=== PATIENT | female | born 1955 | race Caucasian/White ===

== ENCOUNTER → 2018-04-24 09:52 | Outpatient (CLI) | payer OTHER, SELFPAY ==
--- NOTE | 2018-04-24 10:01 | RAD_ITS ---
STUDY: X-RAY - PELVIS REASON FOR EXAM: Female, 62 years old. Chronic pain TECHNIQUE: One view of the pelvis was obtained. COMPARISON: None. FINDINGS: There is a non-specific bowel gas pattern. The soft tissues are unremarkable. There are mild degenerative changes in the lower lumbar spine. The visualized iliac wings, sacroiliac joints and sacrum are unremarkable. No abnormalities are seen in the visualized superior and inferior pubic rami. Normal appearing pubic symphysis. The visualized ischial tuberosities are unremarkable. The proximal right femur shows no significant abnormalities. The right acetabulum shows no significant abnormalities. The right hip joint is normal in appearance. The proximal left femur shows no significant abnormalities. The left acetabulum shows no significant abnormalities. The left hip joint is normal in appearance. RAD/Pelvis 1 or 2 Views IMPRESSION: No significant abnormalities are seen radiographically in the pelvis. Electronically Signed: Mariann Valentine MD at 18:52 EDT Tel Direct: [phone], Service support ,
--- NOTE | 2018-04-24 10:01 | RAD_ITS ---
STUDY: X-RAY - LUMBAR SPINE REASON FOR EXAM: Female, 62 years old. Chronic pain TECHNIQUE: Five view(s) of the lumbar spine were obtained. COMPARISON: None FINDINGS: Normal lumbar lordosis. There is no significant scoliosis. There is normal alignment of the vertebrae. There are small osteophytes scattered in the lumbar spine. Vertebral body heights are maintained. There is moderate disc space narrowing at L5-S1. There is mild disc space narrowing at T12-L1, L1-2 and L3-4. The soft tissues are unremarkable. RAD/L/S Spine Min 4 Views IMPRESSION: There are moderate degenerative disc changes at L5-S1. Mild degenerative disc changes are present in the lower thoracic spine and L1-2 and L3-4. Electronically Signed: Mariann Valentine MD at 18:54 EDT Tel Direct: [phone], Service support ,
[2018-04-24 12:24] LABS: Erythrocyte Sedimentation Rate 5 mm/hr (0-30)
[2018-04-24 12:26] LABS: Absolute Lymphocyte Count 1.49 X10^3/ul (0.83-4.51); Absolute Neutrophil Count 3.8 X10^3/uL (2.0-7.7); Basophil# 0.03 X10^3/uL; Basophil% 0.5 % (0-1); Eosinophil# 0.22 X10^3/uL; Eosinophils% 3.6 % (0-5); Hematocrit 39.8 % (37-47); Lymphocyte # 1.49 X10^3/ul (4.0); Lymphocyte % 24.7 % (19-41); Mean Corp Hgb Conc 32.7 g/gl (32-36); Mean Corpuscular Volume 91.7 fL (81-99); Mean Platelet Vol. 9.8 fl (6.2-12.0); Monocyte# 0.46 X10^3/uL; Monocyte% 7.6 % (0-10); Neutrophil # 3.83 X10^3/uL (2.7-7.7); Neutrophil % 63.6 % (47-70); Platelet Count 303 K/mm3 (150-450); RBC Distribution Width CV 13.8 % (11.6-14.6); RBC Distribution Width SD 46.1 fl (35.1-43.9); Red Blood Count 4.34 M/mm3 (4.2-5.4)
[2018-04-24 12:30] LABS: POSITIVE COUNT NO; POSITIVE DIFFERENTIAL NO; POSITIVE MORPHOLOGY NO
[2018-04-24 12:40] LABS: AST(SGOT) 26 U/L (15-37); Alanine Aminotransfer ALT/SGPT 37 U/L (13-56); Albumin, Serum 3.8 g/dL (3.2-5.0); Alkaline Phosphatase 88 U/L (45-117); Anion Gap 8 (5-15); BUN 17 mg/dL (7-18); BUN/Creat Ratio 18.9 RATIO (10-20); Calcium,Total 9.2 mg/dL (8.5-10.1); Chloride 103 mmol/L (98-107); EST Glomerular Filtration Rate 68 mL/min (>60); Est Glom Filt Rate - Afr Amer 82 mL/min (>60); Globulin 3.8 g/dL (2.2-4.2); Glucose 86 mg/dL (74-106); Potassium 4.6 mmol/L (3.5-5.1); Protein, Total 7.6 g/dL (6.4-8.2); Rheumatoid Factor < 10.0 IU/mL (<15); Sodium Level 140 mmol/L (136-145)
[2018-04-25 13:49] LABS: ANTINUCLEAR ANTIBODIES DIRECT Negative (Negative)
[2018-05-01 18:00] LABS: CCP IgG Antibodies 11 units (0-19); HEPATITIS B SURFACE AG Negative (Negative); HLA B27 Negative (.); Hep B Surface Antibodies Non Reactive (.); Hep C Antibodies <0.1 s/co ratio (0.0-0.9)
== END ==
PROVIDERS: Family Provider Internal Medicine; PCP Internal Medicine; Visit Provider Internal Medicine Rheumatology
DX: M06.4 Inflammatory polyarthropathy (principal); M47.897 Other spondylosis, lumbosacral region; M15.9 Polyosteoarthritis, unspecified; E03.9 Hypothyroidism, unspecified; E78.5 Hyperlipidemia, unspecified
CPT/HCPCS: 36415; 72110; 72170; 80053; 81374; 85025; 85652; 86038; 86140; 86200; 86431; 86706; 86803; 87340

== ENCOUNTER → 2018-07-10 08:19 | Outpatient (CLI) | payer OTHER, SELFPAY ==
[2018-07-10 10:18] LABS: Absolute Lymphocyte Count 1.22 X10^3/ul (0.83-4.51); Absolute Neutrophil Count 3.6 X10^3/uL (2.0-7.7); Basophil# 0.03 X10^3/uL; Basophil% 0.6 % (0-1); Eosinophils% 3.7 % (0-5); Hematocrit 37.7 % (37-47); Hemoglobin 12.6 g/dl (12.0-15.0); Lymphocyte # 1.22 X10^3/ul (4.0); Lymphocyte % 22.5 % (19-41); Mean Corp Hgb Conc 33.4 g/gl (32-36); Mean Corpuscular Hgb 31.8 pg (27.0-32.0); Mean Corpuscular Volume 95.2 fL (81-99); Mean Platelet Vol. 9.8 fl (6.2-12.0); Monocyte# 0.39 X10^3/uL; Monocyte% 7.2 % (0-10); Neutrophil # 3.58 X10^3/uL (2.7-7.7); Neutrophil % 65.8 % (47-70); Platelet Count 312 K/mm3 (150-450); RBC Distribution Width CV 15.5 % (11.6-14.6); RBC Distribution Width SD 52.1 fl (35.1-43.9); Red Blood Count 3.96 M/mm3 (4.2-5.4); White Blood Count 5.4 K/mm3 (4.4-11.0)
[2018-07-10 10:20] LABS: POSITIVE COUNT NO; POSITIVE DIFFERENTIAL NO; POSITIVE MORPHOLOGY NO
[2018-07-10 10:41] LABS: ALB/GLOB Ratio 1.1 RATIO (0.9-2.4); AST(SGOT) 33 U/L (15-37); Alanine Aminotransfer ALT/SGPT 39 U/L (13-56); Albumin, Serum 3.6 g/dL (3.2-5.0); Alkaline Phosphatase 84 U/L (45-117); Anion Gap 10 (5-15); BUN 17 mg/dL (7-18); BUN/Creat Ratio 16.7 RATIO (10-20); Calcium,Total 8.8 mg/dL (8.5-10.1); Chloride 106 mmol/L (98-107); Creatinine, Serum 1.02 mg/dL (0.55-1.02); EST Glomerular Filtration Rate 58 mL/min (>60); Est Glom Filt Rate - Afr Amer 71 mL/min (>60); Globulin 3.4 g/dL (2.2-4.2); Glucose 107 mg/dL (74-106); Potassium 4.4 mmol/L (3.5-5.1); Sodium Level 142 mmol/L (136-145)
== END ==
PROVIDERS: Family Provider Internal Medicine; PCP Internal Medicine; Visit Provider Internal Medicine Rheumatology
DX: M06.4 Inflammatory polyarthropathy (principal); M47.897 Other spondylosis, lumbosacral region; E03.9 Hypothyroidism, unspecified; E78.5 Hyperlipidemia, unspecified; M15.9 Polyosteoarthritis, unspecified
CPT/HCPCS: 36415; 80053; 85025

== ENCOUNTER → 2018-10-02 07:53 | Outpatient (CLI) | payer OTHER, SELFPAY ==
[2018-10-02 10:18] LABS: Absolute Lymphocyte Count 1.16 X10^3/ul (0.83-4.51); Basophil# 0.02 X10^3/uL; Basophil% 0.3 % (0-1); Eosinophil# 0.17 X10^3/uL; Eosinophils% 2.9 % (0-5); Hematocrit 38.9 % (37-47); Hemoglobin 12.5 g/dl (12.0-15.0); Lymphocyte # 1.16 X10^3/ul (4.0); Mean Corp Hgb Conc 32.1 g/gl (32-36); Mean Corpuscular Hgb 31.6 pg (27.0-32.0); Mean Corpuscular Volume 98.5 fL (81-99); Mean Platelet Vol. 9.5 fl (6.2-12.0); Monocyte# 0.45 X10^3/uL; Monocyte% 7.7 % (0-10); Neutrophil % 68.9 % (47-70); POSITIVE COUNT NO; POSITIVE DIFFERENTIAL NO; POSITIVE MORPHOLOGY NO; Platelet Count 317 K/mm3 (150-450); RBC Distribution Width CV 14.7 % (11.6-14.6); RBC Distribution Width SD 52.5 fl (35.1-43.9); Red Blood Count 3.95 M/mm3 (4.2-5.4); White Blood Count 5.8 K/mm3 (4.4-11.0)
[2018-10-02 10:30] LABS: ALB/GLOB Ratio 1.2 RATIO (0.9-2.4); AST(SGOT) 27 U/L (15-37); Alanine Aminotransfer ALT/SGPT 35 U/L (13-56); Albumin, Serum 3.8 g/dL (3.2-5.0); Alkaline Phosphatase 84 U/L (45-117); Anion Gap 7 (5-15); BUN 18 mg/dL (7-18); BUN/Creat Ratio 17.6 RATIO (10-20); Calcium,Total 8.8 mg/dL (8.5-10.1); Chloride 106 mmol/L (98-107); Creatinine, Serum 1.02 mg/dL (0.55-1.02); EST Glomerular Filtration Rate 58 mL/min (>60); Est Glom Filt Rate - Afr Amer 71 mL/min (>60); Globulin 3.3 g/dL (2.2-4.2); Glucose 92 mg/dL (74-106); Potassium 4.1 mmol/L (3.5-5.1); Protein, Total 7.1 g/dL (6.4-8.2); Sodium Level 141 mmol/L (136-145)
--- OUTSIDE RECORDS SUMMARY | 2018-11-27 12:24 | XMS RPT_ITS ---
:1955 Author Organization OHIP Care Team Providers Name Role Phone PEMA SNYDER Referring Unavailable PEMA SNYDER Referring Unavailable PEMA SNYDER Referring Unavailable PEMA SNYDER Referring Unavailable YONG DANIEL Admitting Unavailable YONG DANIEL Attending Unavailable ABDIRAHMAN PATRICK (MACHINE PAINT MIXER) Referring Unavailable Carloslanki, Mena Attending Unavailable Vellanki, Mena Referring Unavailable Sarabjit, Indigo Primary Care Unavailable Vellanki, Mena Attending Unavailable Vellanki, Mena Referring Unavailable Sarabjit, Inidgo Primary Care Unavailable Vellanki, Mena Attending Unavailable Vellanki, Mena Referring Unavailable Sarabjit, Indigo Primary Care Unavailable PROBLEMS PROBLEMS DATE TYPE CONDITION / CODE ATTENDING STATUS SOURCE 10/02/2018 Unknown 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, 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 / Community M06.4(ICD-10) Hospital Repository 10/02/2018 Unknown Z79.899 - Other long Ines, Mena Active [facility] term (current) drug Community therapy / Hospital Z79.899(ICD-10) Repository 10/02/2018 Unknown M15.9 - Mena Chacon Active [facility] Polyosteoarthritis, Community unspecified / Hospital M15.9(ICD-10) Repository 10/02/2018 Unknown M47.897 - Other Mena Chacon Active [facility] spondylosis, Community lumbosacral region / Hospital M47.897(ICD-10) Repository 10/02/2018 Unknown E03.9 - Mena Chacon Active [facility] Hypothyroidism, Community unspecified / Hospital E03.9(ICD-10) Repository 10/02/2018 Unknown E78.5 - Mena Chacon Active [facility] Hyperlipidemia, Community unspecified / Hospital E78.5(ICD-10) Repository 07/17/2018 Active Other abnormal and NA Active [facility] inconclusive findings Clinic Main on diagnostic imaging [place] of breast / Repository R92.8(ICD-10) 01/16/2018 Active Unknown / NA Active [facility] UNK(Unknown) Clinic Main [place] Repository 07/30/2017 Active Family history of DANIEL, Active [facility] malignant neoplasm of [facility] Main digestive organs / [place] Z80.0(ICD-10) Repository PROCEDURES PROCEDURES No Procedure Records FoundRESULTS RESULTS CBC W/DIFF, AUTOMATED Collected: 10/02/2018 Status: F Source: [facility] 7:56 AM [facility] REPOSITORY TYPE CODE TESTS RESULT OUT OF RANGE REFERENCE UNITS LAB L100.1000 4.4-11.0 K/mm3 Normal WBC 5.8 LAB L100.1200 4.2-5.4 M/mm3 Low RBC 3.95 LAB L100.1300 12.0-15.0 g/dl Normal HGB 12.5 LAB L100.1400 37-47 % Normal HCT 38.9 LAB L100.1500 81-99 fL Normal MCV 98.5 LAB L100.1600 27.0-32.0 pg Normal MCH 31.6 LAB L100.1700 32-36 g/gl Normal MCHC 32.1 LAB L100.1810 11.6-14.6 % High RDW CV 14.7 LAB L100.1820 35.1-43.9 fl High RDW SD 52.5 LAB L100.1900 150-450 K/mm3 Normal PLT 317 LAB L100.2000 6.2-12.0 fl Normal MPV 9.5 LAB L100.2100 47-70 % Normal NEUT% 68.9 LAB L100.2200 19-41 % Normal LY% 20.0 LAB L100.2300 0-10 % Normal MONO% 7.7 LAB L100.2400 0-5 % Normal EO% 2.9 LAB L100.2500 0-1 % Normal BASO% 0.3 LAB L100.2550 0.0-0.9 % Normal IM GRAN % 0.200 Result Comment: IG% - Immature Granulocytes (promyelocytes, myelocytes and metamyelocytes) > 1% indicates that a LEFT SHIFT is Present. LAB L100.2620 2.0-7.7 X10 3/uL Normal Absolute Neut 4.0 LAB L100.2720 0.83-4.51 X10 3/ul Normal Absolute Lymph 1.16 Performed By: #### L100.0100 #### [facility] [address] [place], [address] COMPREHENSIVE METABOLIC Collected: 10/02/2018 Status: F Source: [facility] 7:56 AM [facility] REPOSITORY TYPE CODE TESTS RESULT OUT OF RANGE REFERENCE UNITS LAB L501.0100 74-106 mg/dL Normal GLU 92 Result Comment: Please note revised GLUCOSE reference range effective 2017. LAB L501.1000 7-18 mg/dL Normal BUN 18 LAB L501.1100 0.55-1.02 mg/dL Normal CREAT,SERUM 1.02 Result Comment: The validity of the calculated GFR AND GFRAA in patients over 70 years has not been determined. Clinical correlation is essential. LAB L501.1110 >60 mL/min Low EST GFR 58 Result Comment: Non- GFR Calc LAB L501.1115 >60 mL/min Normal EST GFR - AA 71 Result Comment: GFR Calc LAB L501.1300 10-20 RATIO Normal BUN/CRE 17.6 LAB L501.1500 6.4-8.2 g/dL T Normal PROT 7.1 LAB L501.1800 3.2-5.0 g/dL Normal ALB 3.8 LAB L501.1950 2.2-4.2 g/dL Normal GLOB 3.3 LAB L501.2000 0.9-2.4 RATIO Normal A/G 1.2 LAB L501.2200 8.5-10.1 mg/dL CA Normal 8.8 LAB L501.4100 15-37 U/L Normal AST 27 LAB L501.4305 45-117 U/L Normal ALK P 84 LAB L501.4405 13-56 U/L Normal ALT 35 LAB L501.4600 0.20-1.00 mg/dL T Normal BILI 0.50 LAB L501.5300 136-145 mmol/L NA Normal 141 LAB L501.5600 3.5-5.1 mmol/L K Normal 4.1 LAB L501.5900 98-107 mmol/L CL Normal 106 LAB L501.6100 21.0-32.0 mmol/L Normal CO2 28.0 LAB L501.6200 5-15 Normal GAP 7 Performed By: #### L500.4050 #### [facility] [address] [place], [address] PROGRESS Observed: 07/17/2018 Status: COMPLETED Source: [place] 1:31 PM [facility] REPOSITORY HNO ID: [id number] Author: Rodolfo Ruby Service: (none) Author Type: Health Occupations Instructor Type: Progress Notes Filed: 07/17/2018 1:31 PM Note Text: Radiology Service Progress Note PATIENT NAME: Linda Wilson DATE OF SERVICE: July 17, 2018 TIME: 1:31 PM PATIENT IDENTITY VERIFICATION COMPLETED USING TWO (2) METHODS: Patient confirmed name verbally and Date of . PATIENT GENDER DATA: Female. status: : No status: N/A PATIENT RELEVANT IMPLANT DATA REVIEWED: Not Applicable RADIOLOGY DEPARTMENT: Ultrasound PERIPHERAL IV DATA: Not applicable SIGNED BY: RODOLFO RUBY RDMS RVSkye July 17, 2018 1:31 PM [facility] Observed: 07/17/2018 Status: COMPLETED Source: [place] 1:31 PM [facility] REPOSITORY HNO ID: [id number] Author: Mammography Coordinator Service: (none) Author Type: Physician Type: Letter Filed: 07/18/2018 11:32 PM Note Text: July 17, 2018 PID: [id number] Linda Wilson [address] [place] [address] Dear Ms. Wilson, We are pleased to inform you that the results of your recent breast imaging exam on 07/17/2018 are normal and we recommend that you return to your annual screening Mammography schedule. Early detection of cancer is very important. We also understand recommendations regarding breast cancer screening are controversial. Please discuss with your primary care provider which strategy is best for you and whether a mammogram is right for you. Your imaging studies and report will be kept on file at [facility] as part of your permanent medical record and are available for your continuing care. Thank you for allowing us to help in meeting your health care needs. Sincerely, Dr. Olivas Interpreting Radiologist [facility] (Return to Annual Mammogram schedule) [facility] Observed: 07/17/2018 Status: COMPLETED Source: [place] 1:31 PM [facility] REPOSITORY HNO ID: [id number] Author: Mammography Coordinator Service: (none) Author Type: Physician Type: Letter Filed: 07/18/2018 11:32 PM Note Text: July 17, 2018 PID: [id number] Linda Wilson [address] [place] [address] Dear Ms. Wilson, We are pleased to inform you that the results of your recent breast imaging exam on 07/17/2018 are normal and we recommend that you return to your annual screening Mammography schedule. Early detection of cancer is very important. We also understand recommendations regarding breast cancer screening are controversial. Please discuss with your primary care provider which strategy is best for you and whether a mammogram is right for you. Your imaging studies and report will be kept on file at [facility] as part of your permanent medical record and are available for your continuing care. Thank you for allowing us to help in meeting your health care needs. Sincerely, Dr. Olivas Interpreting Radiologist [facility] (Return to Annual Mammogram schedule) [facility] US BREAST LTD Observed: 07/17/2018 Status: F Source: [place] RT 1:23 PM [facility] REPOSITORY * * *Final Report* * * DATE OF EXAM: Jul 17 2018 1:23PM [place] 0594 - [facility] US BREAST LTD RT / PROCEDURE REASON: Other abnormal and inconclusive findings on diagnostic imaging of breast * * * * Physician Interpretation * * * * #[id number] - [facility] DIAGNOSTIC CATIA BILATERAL DIGITAL DIAGNOSTIC MAMMOGRAM WITH CAD: 07/17/2018 HISTORY: Other Abnormal And Inconclusive Findings On Diagnostic Imaging Of Breast\abnormal mammogram. RESULT: TECHNIQUE: The study was acquired using full field digital technology and interpreted from soft copy. Current study was also evaluated with a Computer Aided Detection (CAD). Comparison is made to exams dated: 01/16/2018 mammogram, 06/27/2017 mammogram - [facility], 06/13/2017 mammogram - [facility], and 04/14/2015 mammogram [facility]. There are scattered fibroglandular elements in both breasts. There is a 7 mm oval equal density focal asymmetry with an obscured margin in the right breast at 1 o'clock posterior depth. This is not significantly changed. No other significant masses, calcifications, or other findings are seen in either breast. BENIGN FINDING The 7 mm oval equal density focal asymmetry in the right breast is consistent with a cyst and is benign. There is no mammographic evidence of malignancy. #[id number] - [facility] US BREAST LTD RT ULTRASOUND OF RIGHT BREAST: 07/17/2018 RESULT: Comparison is made to exams dated: 01/16/2018 mammogram, 06/27/2017 mammogram - [facility], 06/13/2017 [facility] - [facility], and [facility]. Real-time ultrasound of the right breast was performed. There is a benign 0.6 cm x 0.4 cm x 0.4 cm oval cyst in the right breast at 1 o'clock posterior depth 7 cm from the nipple. There also is a benign 0.5 cm x 0.3 cm x 0.2 cm oval cyst in the right breast at 1 o'clock posterior depth 7 cm from the nipple. This oval cyst is hypoechoic with internal echoes. This abnormality is not significantly changed. Color flow imaging demonstrates that there is no vascularity present. IMPRESSION: BENIGN FINDING There is no sonographic evidence of malignancy. The 0.6 cm x 0.4 cm x 0.4 cm oval cyst in the right breast at 1 o'clock posterior depth is consistent with a simple cyst and is benign. The 0.5 cm x 0.3 cm x 0.2 cm oval cyst in the right breast at 1 o'clock posterior depth is consistent with a complicated cyst and is benign. Return to annual mammogram screening schedule is recommended. Sacha lim/missy:07/17/2018 13:31:04 Log Handler: Krista MCGUIRE(R)(M), [facility] letter sent: Return to Annual Mammogram BI-RADS: 2 Benign finding Ultrasound BI-RADS: 2 Benign finding Principal Software Architect: Missy Transcribe Date/Time: Jul 17 2018 12:57P Dictated by : SACHA OLIVAS MD This examination was interpreted and the report reviewed and electronically signed by: SACHA OLIVAS MD on Jul 17 2018 1:31PM EST [id number] [facility] DIAGNOSTIC CATIA Observed: 07/17/2018 Status: F Source: [place] 12:56 PM [facility] REPOSITORY * * *Final Report* * * DATE OF EXAM: Jul 17 2018 12:56PM [place] 0620 - [facility] DIAGNOSTIC CATIA / PROCEDURE REASON: Other abnormal and inconclusive findings on diagnostic imaging of breast * * * * Physician Interpretation * * * * RESULT: #[id number] - [facility] DIAGNOSTIC CATIA BILATERAL DIGITAL DIAGNOSTIC MAMMOGRAM WITH CAD: 07/17/2018 HISTORY: Other Abnormal And Inconclusive Findings On Diagnostic Imaging Of Breast\abnormal mammogram. RESULT: TECHNIQUE: The study was acquired using full field digital technology and interpreted from soft copy. Current study was also evaluated with a Computer Aided Detection (CAD). Comparison is made to exams dated: 01/16/2018 mammogram, 06/27/2017 mammogram - [facility], 06/13/2017 mammogram - [facility], and 04/14/2015 mammogram - [facility]. There are scattered fibroglandular elements in both breasts. There is a 7 mm oval equal density focal asymmetry with an obscured margin in the right breast at 1 o'clock posterior depth. This is not significantly changed. No other significant masses, calcifications, or other findings are seen in either breast. BENIGN FINDING The 7 mm oval equal density focal asymmetry in the right breast is consistent with a cyst and is benign. There is no mammographic evidence of malignancy. #[id number] - [facility] US BREAST LTD RT ULTRASOUND OF RIGHT BREAST: 07/17/2018 RESULT: Comparison is made to exams dated: 01/16/2018 mammogram, 06/27/2017 mammogram - [facility], 06/13/2017 mammogram - [facility], and 04/14/2015 mammogram - [facility]. Real-time ultrasound of the right breast was performed. There is a benign 0.6 cm x 0.4 cm x 0.4 cm oval cyst in the right breast at 1 o'clock posterior depth 7 cm from the nipple. There also is a benign 0.5 cm x 0.3 cm x 0.2 cm oval cyst in the right breast at 1 o'clock posterior depth 7 cm from the nipple. This oval cyst is hypoechoic with internal echoes. This abnormality is not significantly changed. Color flow imaging demonstrates that there is no vascularity present. IMPRESSION: BENIGN FINDING There is no sonographic evidence of malignancy. The 0.6 cm x 0.4 cm x 0.4 cm oval cyst in the right breast at 1 o'clock posterior depth is consistent with a simple cyst and is benign. The 0.5 cm x 0.3 cm x 0.2 cm oval cyst in the right breast at 1 o'clock posterior depth is consistent with a complicated cyst and is benign. Return to annual mammogram screening schedule is recommended. Sacha lim/missy:07/17/2018 13:31:04 Log Handler: Krista MCGUIRE(Jo-Ann)(Dmitriy), [facility] letter sent: Return to Annual Mammogram BI-RADS: 2 Benign finding Ultrasound BI-RADS: 2 Benign finding Principal Software Architect: Missy Transcribe Date/Time: Jul 17 2018 12:57P Dictated by: SACHA OLIVAS MD This examination was interpreted and the report reviewed and electronically signed by: SACHA OLIVAS MD on Jul 17 2018 1:31PM EST [id number] CBC W/DIFF, AUTOMATED Collected: 07/10/2018 Status: F Source: [place] 8:23 AM [facility] REPOSITORY TYPE CODE TESTS RESULT OUT OF RANGE REFERENCE UNITS LAB L100.1000 4.4-11.0 K/mm3 Normal WBC 5.4 LAB L100.1200 4.2-5.4 M/mm3 Low RBC 3.96 LAB L100.1300 12.0-15.0 g/dl Normal HGB 12.6 LAB L100.1400 37-47 % Normal HCT 37.7 LAB L100.1500 81-99 fL Normal MCV 95.2 LAB L100.1600 27.0-32.0 pg Normal MCH 31.8 LAB L100.1700 32-36 g/gl Normal MCHC 33.4 LAB L100.1810 11.6-14.6 % High RDW CV 15.5 LAB L100.1820 35.1-43.9 fl High RDW SD 52.1 LAB L100.1900 150-450 K/mm3 Normal PLT 312 LAB L100.2000 6.2-12.0 fl Normal MPV 9.8 LAB L100.2100 47-70 % Normal NEUT% 65.8 LAB L100.2200 19-41 % Normal LY% 22.5 LAB L100.2300 0-10 % Normal MONO% 7.2 LAB L100.2400 0-5 % Normal EO% 3.7 LAB L100.2500 0-1 % Normal BASO% 0.6 LAB L100.2550 0.0-0.9 % Normal IM GRAN % 0.200 Result Comment: IG% - Immature Granulocytes (promyelocytes, myelocytes and metamyelocytes) > 1% indicates that a LEFT SHIFT is Present. LAB L100.2620 2.0-7.7 X10 3/uL Normal Absolute Neut 3.6 LAB L100.2720 0.83-4.51 X10 3/ul Normal Absolute Lymph 1.22 Performed By: #### L100.0100 #### [facility] [address] [place], [place], [address] COMPREHENSIVE METABOLIC Collected: 07/10/2018 Status: F Source: [facility] 8:23 AM [facility] REPOSITORY TYPE CODE TESTS RESULT OUT OF RANGE REFERENCE UNITS LAB L501.0100 74-106 mg/dL High GLU 107 Result Comment: Fasting Glucose result from 100 to 125 mg/dL suggests IMPAIRED HOMEOSTASIS per A.D.A. criteria. Please note revised GLUCOSE reference range effective 2017. LAB L501.1000 7-18 mg/dL Normal BUN 17 LAB L501.1100 0.55-1.02 mg/dL Normal CREAT,SERUM 1.02 Result Comment: The validity of the calculated GFR AND GFRAA in patients over 70 years has not been determined. Clinical correlation is essential. LAB L501.1110 >60 mL/min Low EST GFR 58 Result Comment: Non- GFR Calc LAB L501.1115 >60 mL/min Normal EST GFR - AA 71 Result Comment: GFR Calc LAB L501.1300 10-20 RATIO Normal BUN/CRE 16.7 LAB L501.1500 6.4-8.2 g/dL T Normal PROT 7.0 LAB L501.1800 3.2-5.0 g/dL Normal ALB 3.6 LAB L501.1950 2.2-4.2 g/dL Normal GLOB 3.4 LAB L501.2000 0.9-2.4 RATIO Normal A/G 1.1 LAB L501.2200 8.5-10.1 mg/dL CA Normal 8.8 LAB L501.4100 15-37 U/L Normal AST 33 LAB L501.4305 45-117 U/L Normal ALK P 84 LAB L501.4405 13-56 U/L Normal ALT 39 LAB L501.4600 0.20-1.00 mg/dL T Normal BILI 0.50 LAB L501.5300 136-145 mmol/L NA Normal 142 LAB L501.5600 3.5-5.1 mmol/L K Normal 4.4 LAB L501.5900 98-107 mmol/L CL Normal 106 LAB L501.6100 21.0-32.0 mmol/L Normal CO2 26.0 LAB L501.6200 5-15 Normal GAP 10 Performed By: #### L500.4050 #### [facility] [address] [place], [place], [address] ERYTHROCYTE SED RATE Collected: 04/24/2018 Status: F Source: [place] 10:02 AM [facility] REPOSITORY TYPE CODE TESTS RESULT OUT OF RANGE REFERENCE UNITS LAB L102.0000 0-30 mm/hr Normal SED RATE 5 Performed By: #### L101.9900, L100.0100 #### [facility] [address] [place], [address] CBC W/DIFF, AUTOMATED Collected: 04/24/2018 Status: F Source: [place] 10:02 AM [facility] REPOSITORY TYPE CODE TESTS RESULT OUT OF RANGE REFERENCE UNITS LAB L100.1000 4.4-11.0 K/mm3 Normal WBC 6.0 LAB L100.1200 4.2-5.4 M/mm3 Normal RBC 4.34 LAB L100.1300 12.0-15.0 g/dl Normal HGB 13.0 LAB L100.1400 37-47 % Normal HCT 39.8 LAB L100.1500 81-99 fL Normal MCV 91.7 LAB L100.1600 27.0-32.0 pg Normal MCH 30.0 LAB L100.1700 32-36 g/gl Normal MCHC 32.7 LAB L100.1810 11.6-14.6 % Normal RDW CV 13.8 LAB L100.1820 35.1-43.9 fl High RDW SD 46.1 LAB L100.1900 150-450 K/mm3 Normal PLT 303 LAB L100.2000 6.2-12.0 fl Normal MPV 9.8 LAB L100.2100 47-70 % Normal NEUT% 63.6 LAB L100.2200 19-41 % Normal LY% 24.7 LAB L100.2300 0-10 % Normal MONO% 7.6 LAB L100.2400 0-5 % Normal EO% 3.6 LAB L100.2500 0-1 % Normal BASO% 0.5 LAB L100.2550 0.0-0.9 % Normal IM GRAN % 0.000 Result Comment: IG% - Immature Granulocytes (promyelocytes, myelocytes and metamyelocytes) > 1% indicates that a LEFT SHIFT is Present. LAB L100.2620 2.0-7.7 X10 3/uL Normal Absolute Neut 3.8 LAB L100.2720 0.83-4.51 X10 3/ul Normal Absolute Lymph 1.49 Performed By: #### L101.9900, L100.0100 #### [facility] [address] [place], [address] COMPREHENSIVE METABOLIC Collected: 04/24/2018 Status: F Source: [place] 10:02 AM [facility] REPOSITORY TYPE CODE TESTS RESULT OUT OF RANGE REFERENCE UNITS LAB L501.0100 74-106 mg/dL Normal GLU 86 Result Comment: Please note revised GLUCOSE reference range effective 2017. LAB L501.1000 7-18 mg/dL Normal BUN 17 LAB L501.1100 0.55-1.02 mg/dL Normal CREAT,SERUM 0.90 Result Comment: The validity of the calculated GFR AND GFRAA in patients over 70 years has not been determined. Clinical correlation is essential. LAB L501.1110 >60 mL/min Normal EST GFR 68 Result Comment: Non- GFR Calc LAB L501.1115 >60 mL/min Normal EST GFR - AA 82 Result Comment: GFR Calc LAB L501.1300 10-20 RATIO Normal BUN/CRE 18.9 LAB L501.1500 6.4-8.2 g/dL T Normal PROT 7.6 LAB L501.1800 3.2-5.0 g/dL Normal ALB 3.8 LAB L501.1950 2.2-4.2 g/dL Normal GLOB 3.8 LAB L501.2000 0.9-2.4 RATIO Normal A/G 1.0 LAB L501.2200 8.5-10.1 mg/dL CA Normal 9.2 LAB L501.4100 15-37 U/L Normal AST 26 LAB L501.4305 45-117 U/L Normal ALK P 88 LAB L501.4405 13-56 U/L Normal ALT 37 LAB L501.4600 0.20-1.00 mg/dL T Normal BILI 0.40 LAB L501.5300 136-145 mmol/L NA Normal 140 LAB L501.5600 3.5-5.1 mmol/L K Normal 4.6 LAB L501.5900 98-107 mmol/L CL Normal 103 LAB L501.6100 21.0-32.0 mmol/L Normal CO2 29.0 LAB L501.6200 5-15 Normal GAP 8 Performed By: #### L500.4050, L501.6710, L505.7010 #### [facility] [address] [place], [place], [id number] CRP Collected: 04/24/2018 Status: F Source: [place] 10:02 AM [facility] REPOSITORY TYPE CODE TESTS RESULT OUT OF RANGE REFERENCE UNITS LAB L501.6710 0.0-3.0 mg/L High 20.00 C-REACTIVE PROT Result Comment: C-Reactive Protein (CRP) provides useful information for the diagnosis, therapy and monitoring of inflammatory processes and associated diseases. For the evaluation of Relative Risk for Cardiovascular Disease, a High Sensitivity CRP (HSCRP) should be ordered. Performed By: #### L500.4050, L501.6710, L505.7010 #### [facility] [address] [place], [address] RHEUMATOID FACTOR Collected: 04/24/2018 Status: F Source: [place] 10:02 AM [facility] REPOSITORY TYPE CODE TESTS RESULT OUT OF RANGE REFERENCE UNITS LAB L505.7010 <15 IU/mL Normal RHEUMATOID FAC < 10.0 Performed By: #### L500.4050, L501.6710, L505.7010 #### [facility] [address] [place], [address] PELVIS 1 OR 2 VIEWS Observed: 04/24/2018 Status: F Source: [place] 10:02 AM [facility] REPOSITORY [facility] Imaging Services [address] [facility] [place] [address] Pelvis 1 or 2 Views MR#: [id number] Acct: [id number] Name: LINDA WILSON Rep #: [id number] : 1955 F 62 From: Mariann Valentine MD PCP: Indigo Whipple DO Status: REG CLI Study: Pelvis 1 or 2 Views Date of Exam: 04/24/18 Exam# [id number] Ordering Dr: Mena Chacon MD STUDY: X-RAY - PELVIS REASON FOR EXAM: Female, 62 years old. Chronic pain TECHNIQUE: One view of the pelvis was obtained. COMPARISON: None. FINDINGS: There is a non-specific bowel gas pattern. The soft tissues are unremarkable. There are mild degenerative changes in the lower lumbar spine. The visualized iliac wings, sacroiliac joints and sacrum are unremarkable. No abnormalities are seen in the visualized superior and inferior pubic rami. Normal appearing pubic symphysis. The visualized ischial tuberosities are unremarkable. The proximal right femur shows no significant abnormalities. The right acetabulum shows no significant abnormalities. The right hip joint is normal in appearance. The proximal left femur shows no significant abnormalities. The left acetabulum shows no significant abnormalities. The left hip joint is normal in appearance. RAD/Pelvis 1 or 2 Views IMPRESSION: No significant abnormalities are seen radiographically in the pelvis. Electronically Signed: Mariann Valentine MD at 18:52 EDT Tel Direct: [phone], Service support , CC: Indigo Whipple DO; Mena Chacon MD Principal Software Architect: Signed L/S SPINE MIN 4 Observed: 04/24/2018 Status: F Source: [place] VIEWS 10:02 AM [facility] REPOSITORY [facility] Imaging Services [address] [place] [id number] L/S Spine Min 4 Views MR#: [id number] Acct: [id number] Name: LINDA WILSON Rep #: [id number] : 1955 F 62 From: Mariann Valentine MD PCP: Indigo Whipple DO Status: REG CLI Study: L/S Spine Min 4 Views Date of Exam: 04/24/18 Exam# [id number] Ordering Dr: Mena Chacon MD STUDY: X-RAY - LUMBAR SPINE REASON FOR EXAM: Female, 62 years old. Chronic pain TECHNIQUE: Five view(s) of the lumbar spine were obtained. COMPARISON: None FINDINGS: Normal lumbar lordosis. There is no significant scoliosis. There is normal alignment of the vertebrae. There are small osteophytes scattered in the lumbar spine. Vertebral body heights are maintained. There is moderate disc space narrowing at L5-S1. There is mild disc space narrowing at T12-L1, L1-2 and L3-4. The soft tissues are unremarkable. RAD/L/S Spine Min 4 Views IMPRESSION: There are moderate degenerative disc changes at L5-S1. Mild degenerative disc changes are present in the lower thoracic spine and L1- 2 and L3-4. Electronically Signed: Mariann Valentine MD at 18:54 EDT Tel Direct: [phone], Service support , CC: Indigo Whipple DO; Mena Chacon MD Principal Software Architect: Signed ANTINUCLEAR ANTIBODIES Collected: 04/24/2018 Status: F Source: [place] DIRECT 10:02 AM [facility] REPOSITORY TYPE CODE TESTS RESULT OUT OF RANGE REFERENCE UNITS LAB L3100.5475 Negative Normal Negative MONA-DIRECT Result Comment: Performed at: - [address] [id number] Tool Machinist: Fredrick Ashley PhD, Phone: [phone] Performed By: #### L3100.5475 #### [facility] (refer to report for specific site) refer to report for address and phone number HEPATITIS B SURFACE Collected: 04/24/2018 Status: F Source: [place] AG 10:02 AM [facility] REPOSITORY TYPE CODE TESTS RESULT OUT OF RANGE REFERENCE UNITS LAB L3100.0400 Negative Normal HB Negative SURF AG Result Comment: Performed at: - [facility] [address] [id number] Tool Machinist: Fredrick Ashley PhD, Phone: [phone] Performed at: 2Q - [address] [id number] Tool Machinist: Kirk Burnette PhD, Phone: [phone] Performed at: - [address] [id number] Tool Machinist: Jordan Villarreal MD, Phone: [phone] Performed By: #### L3100.0390, L3100.0528, L3100.0625, L3410.1400, L4600.0100 #### [facility] (refer to report for specific site) refer to report for address and phone number HEP B SURFACE Collected: 04/24/2018 Status: F Source: [place] ANTIBODIES 10:02 AM [facility] REPOSITORY TYPE CODE TESTS RESULT OUT OF RANGE REFERENCE UNITS LAB L3100.0528 . Normal Hep B Non Reactive Siri AB Result Comment: Non Reactive: Inconsistent with immunity, less than 10 mIU/mL Reactive: Consistent with immunity, greater than 9.9 mIU/mL Performed By: #### L3100.0390, L3100.0528, L3100.0625, L3410.1400, L4600.0100 #### [facility] (refer to report for specific site) refer to report for address and phone number HEPATITIS C ANTIBODIES Collected: 04/24/2018 Status: F Source: [place] 10:02 AM [facility] REPOSITORY TYPE CODE TESTS RESULT OUT OF RANGE REFERENCE UNITS LAB L3100.0650 0.0-0.9 s/co ratio Normal HEP C AB <0.1 Result Comment: Negative: < 0.8 Indeterminate: 0.8 - 0.9 Positive: > 0.9 The CDC recommends that a positive HCV antibody result be followed up with a HCV Nucleic Acid Amplification test (390574). Performed By: #### L3100.0390, L3100.0528, L3100.0625, L3410.1400, L4600.0100 #### [facility] (refer to report for specific site) refer to report for address and phone number HLA B27 Collected: 04/24/2018 Status: F Source: [place] 10:02 AM [facility] REPOSITORY TYPE CODE TESTS RESULT OUT OF RANGE REFERENCE UNITS LAB L3410.1500 . Normal HLA Negative B27 Result Comment: HLA-B*27 Negative B27 allele interpretation for all loci based on IMGT/HLA database version 3.27 This test was developed and its performance characteristics determined by [facility]. It has not been cleared or approved by the Food and Drug Administration. [facility] CLIA ID Number [id number] This test was performed using PCR (Polymerase Chain Reaction)/SSOP (Sequence Specific Oligonucleotide Probes) technique. SBT (Sequence Based Typing) and/or SSP (Sequence Specific Primers) may be used as supplemental methods when necessary. Please contact HLA Customer Service at if you have any questions. Director of HLA Laboratory Dr Kirk Burnette, PhD Performed By: #### L3100.0390, L3100.0528, L3100.0625, L3410.1400, L4600.0100 #### [facility] (refer to report for specific site) refer to report for address and phone number CCP IGG ANTIBODIES Collected: 04/24/2018 Status: F Source: [place] 10:02 AM [facility] REPOSITORY TYPE CODE TESTS RESULT OUT OF RANGE REFERENCE UNITS LAB L4600.0100 0-19 units Normal ANTI-CCP 11 [id number] Result Comment: Negative <20 Weak positive 20 - 39 Moderate positive 40 - 59 Strong positive >59 Performed By: #### L3100.0390, L3100.0528, L3100.0625, L3410.1400, L4600.0100 #### [facility] (refer to report for specific site) refer to report for address and phone number PROGRESS Observed: 01/16/2018 Status: COMPLETED Source: [place] 9:20 AM [facility] REPOSITORY HNO ID: [id number] Author: Indigo Guillermo Service: (none) Author Type: (none) Type: Progress Notes Filed: 01/16/2018 9:20 AM Note Text: Radiology Service Progress Note PATIENT NAME: Linda Wilson DATE OF SERVICE: January 16, 2018 TIME: 9:20 AM PATIENT IDENTITY VERIFICATION COMPLETED USING TWO (2) METHODS: Patient confirmed name verbally and Date of . PATIENT GENDER DATA: Female. status: : No status: NO. PATIENT RELEVANT IMPLANT DATA REVIEWED: Yes RADIOLOGY DEPARTMENT: Ultrasound PERIPHERAL IV DATA: Not applicable SIGNED BY: Indigo Guillermo January 16, 2018 9:20 AM [facility] Observed: 01/16/2018 Status: COMPLETED Source: [place] 9:14 AM [facility] REPOSITORY HNO ID: [id number] Author: Mammography Coordinator Service: (none) Author Type: Physician Type: Letter Filed: 01/17/2018 11:31 PM Note Text: January 16, 2018 PID: [id number] Linda SJohnathan Wilson [address] [place] [address] Dear Ms. Wilson, Your recent breast imaging examination performed on 01/16/2018 showed an area that we believe is probably benign (not cancer). A six month follow-up is recommended to ensure your breast health. Please call [phone] to schedule an appointment for these tests if you have not already done so. Early detection of cancer is very important. We also understand recommendations regarding breast cancer screening are controversial. Please discuss with your primary care provider which strategy is best for you and whether a mammogram is right for you. Your breast images and report will be kept on file here as part of your permanent medical record and are available for your continuing care. Thank you for allowing us to help in meeting your health care needs. Sincerely, Dr. Olivas Interpreting Radiologist [facility] (# mo Follow-up) [facility] Observed: 01/16/2018 Status: COMPLETED Source: [place] 9:14 AM [facility] REPOSITORY HNO ID: [id number] Author: Mammography Coordinator Service: (none) Author Type: Physician Type: Letter Filed: 01/17/2018 11:31 PM Note Text: January 16, 2018 PID: [id number] Linda Wilson [address] [place] [address] Dear Ms. Wilson, Your recent breast imaging examination performed on 01/16/2018 showed an area that we believe is probably benign (not cancer). A six month follow-up is recommended to ensure your breast health. Please call [phone] to schedule an appointment for these tests if you have not already done so. Early detection of cancer is very important. We also understand recommendations regarding breast cancer screening are controversial. Please discuss with your primary care provider which strategy is best for you and whether a mammogram is right for you. Your breast images and report will be kept on file here as part of your permanent medical record and are available for your continuing care. Thank you for allowing us to help in meeting your health care needs. Sincerely, Dr. Olivas Interpreting Radiologist [facility] (# mo Follow-up) [facility] [employer] Observed: 01/16/2018 Status: F Source: [place] RT 9:06 AM [facility] REPOSITORY * * *Final Report* * * DATE OF EXAM: Jan 16 2018 9:06AM [id number] - [facility] US BREAST LTD RT / PROCEDURE REASON: 6 MONTH RIGHT BREAST / ABNORMAL MAMMOGRAM * * * * Physician Interpretation * * * * #[id number] - [facility] DIAGNOSTIC RT UNILATERAL RIGHT DIGITAL DIAGNOSTIC MAMMOGRAM WITH CAD: 01/16/2018 HISTORY: 6 Month Right Breast / Abnormal Mammogram. RESULT: TECHNIQUE: The study was acquired using full field digital technology and interpreted from soft copy. Current study was also evaluated with a Computer Aided Detection (CAD). Comparison is made to exams dated: 06/27/2017 mammogram [facility], 06/13/2017 [facility], [facility]. There are scattered fibroglandular elements in the right breast. There is a 5 mm oval equal density focal asymmetry with a circumscribed margin in the right breast at 1 o'clock middle depth. This is not significantly changed. No other significant masses or calcifications are seen in the breast. PROBABLY BENIGN - SHORT TERM INTERVAL FOLLOW-UP RECOMMENDED The 5 mm oval equal density focal asymmetry in the right breast is probably benign. #[id number] - [facility] US BREAST LTD RT ULTRASOUND OF RIGHT BREAST: 01/16/2018 RESULT: Comparison is made to exams dated: 06/27/2017 mammogram - [facility], 06/13/2017 [facility] - [facility], [facility]. Real-time ultrasound of the right breast was performed. There is a 0.4 cm x 0.2 cm x 0.3 cm oval cyst in the right breast at 1 o'clock posterior depth 7 cm from the nipple. This oval cyst is hypoechoic with internal echoes. This abnormality is not significantly changed and correlates with mammography findings. Color flow imaging demonstrates that there is no vascularity present. There also is a stable benign 0.7 cm x 0.4 cm x 0.4 cm oval cyst with a smooth internal wall in the right breast at 1 o'clock posterior depth 7 cm from the nipple. This oval cyst is anechoic. This correlates with mammography findings. Color flow imaging demonstrates that there is no vascularity present. IMPRESSION: PROBABLY BENIGN - SHORT TERM INTERVAL FOLLOW-UP RECOMMENDED - FOLLOW-UP RECOMMENDED The 0.4 cm x 0.2 cm x 0.3 cm oval cyst in the right breast at 1 o'clock posterior depth is consistent with a complicated cyst and is probably benign. The stable 0.7 cm x 0.4 cm x 0.4 cm oval cyst in the right breast at 1 o'clock posterior depth is consistent with a simple cyst and is benign. A follow-up mammogram and an ultrasound in 6 months is recommended to demonstrate stability. Sacha lim/missy:01/16/2018 09:14:44 Log Handler: Krista Patel RT(R)(M), [facility] letter sent: # Mo FU Mammogram BI-RADS: 3 Probably benign finding - short term interval follow-up recommended Ultrasound BI-RADS: 3 Probably benign finding - short term interval follow-up recommended Principal Software Architect: Missy Transcribe Date/Time: Jan 16 2018 8:43A Dictated by : SACHA OLIVAS MD This examination was interpreted and the report reviewed and electronically signed by: SACHA OLIVAS MD on Jan 16 2018 9:14AM EST [id number] [facility] DIAGNOSTIC RT Observed: 01/16/2018 Status: F Source: [place] 8:42 AM [facility] REPOSITORY * * *Final Report* * * DATE OF EXAM: Jan 16 2018 8:42AM [id number] - [facility] DIAGNOSTIC RT / PROCEDURE REASON: 6 MONTH RIGHT BREAST / ABNORMAL MAMMOGRAM * * * * Physician Interpretation * * * * RESULT: #[id number] - [facility] DIAGNOSTIC RT UNILATERAL RIGHT DIGITAL DIAGNOSTIC MAMMOGRAM WITH CAD: 01/16/2018 HISTORY: 6 Month Right Breast / Abnormal Mammogram. RESULT: TECHNIQUE: The study was acquired using full field digital technology and interpreted from soft copy. Current study was also evaluated with a Computer Aided Detection (CAD). Comparison is made to exams dated: 06/27/2017 mammogram - [facility], 06/13/2017 mammogram - [facility], and 04/14/2015 mammogram - [facility]. There are scattered fibroglandular elements in the right breast. There is a 5 mm oval equal density focal asymmetry with a circumscribed margin in the right breast at 1 o'clock middle depth. This is not significantly changed. No other significant masses or calcifications are seen in the breast. PROBABLY BENIGN - SHORT TERM INTERVAL FOLLOW-UP RECOMMENDED The 5 mm oval equal density focal asymmetry in the right breast is probably benign. #[id number] - [facility] US BREAST LTD RT ULTRASOUND OF RIGHT BREAST: 01/16/2018 RESULT: Comparison is made to exams dated: 06/27/2017 mammogram - [facility], 06/13/2017 mammogram - [facility], and 04/14/2015 mammogram - [facility]. Real-time ultrasound of the right breast was performed. There is a 0.4 cm x 0.2 cm x 0.3 cm oval cyst in the right breast at 1 o'clock posterior depth 7 cm from the nipple. This oval cyst is hypoechoic with internal echoes. This abnormality is not significantly changed and correlates with mammography findings. Color flow imaging demonstrates that there is no vascularity present. There also is a stable benign 0.7 cm x 0.4 cm x 0.4 cm oval cyst with a smooth internal wall in the right breast at 1 o'clock posterior depth 7 cm from the nipple. This oval cyst is anechoic. This correlates with mammography findings. Color flow imaging demonstrates that there is no vascularity present. IMPRESSION: PROBABLY BENIGN - SHORT TERM INTERVAL FOLLOW-UP RECOMMENDED - FOLLOW-UP RECOMMENDED The 0.4 cm x 0.2 cm x 0.3 cm oval cyst in the right breast at 1 o'clock posterior depth is consistent with a complicated cyst and is probably benign. The stable 0.7 cm x 0.4 cm x 0.4 cm oval cyst in the right breast at 1 o'clock posterior depth is consistent with a simple cyst and is benign. A follow-up mammogram and an ultrasound in 6 months is recommended to demonstrate stability. Sacha lim/missy:01/16/2018 09:14:44 Log Handler: Krista TINAJERO)(Dmitriy), [facility] letter sent: # Mo FU Mammogram BI-RADS: 3 Probably benign finding - short term interval follow-up recommended Ultrasound BI-RADS: 3 Probably benign finding - short term interval follow-up recommended Principal Software Architect: Missy Transcribe Date/Time: Jan 16 2018 8:43A Dictated by: SACHA OLIVAS MD This examination was interpreted and the report reviewed and electronically signed by: SACHA OLIVAS MD on Jan 16 2018 9:14AM EST [id number] HISTORY PHYSICAL Observed: 07/30/2017 Status: COMPLETED Source: [place] 3:42 PM [facility] REPOSITORY HNO ID: [id number] Author: Yong Daniel Service: Gastroenterology Author Type: Physician Type: HANDP Filed: 07/30/2017 3:43 PM Note Text: PROCEDURAL SEDATION HISTORY AND PHYSICAL EXAM SERVICE DATE: 07/30/2017 SERVICE TIME: 3:42 PM SUBJECTIVE HPI: This is a 61 year old female who presents with the need for screening colonoscopy PAST ANESTHESIA HISTORY: No history of adverse event PAST MEDICAL HISTORY Diagnosis Date - ANEMIA NOS 07/03/2007 - Carpal tunnel syndrome 01/12/2009 - CHOLELITH W CHOLECYS NEC 07/03/2007 - Dysplasia of cervix - History of hysterectomy for benign disease 2014 large pedunculated fibroid, stenotic cervix- performed robotically with BSO. - Lichen sclerosus 12/27/2011 - Osteoarthritis 12/27/2011 - Osteoarthrosis, unspecified whether generalized or localized, other specified sites - Unspecified hypothyroidism Hypothyroidism PAST SURGICAL HISTORY Procedure Laterality Date - APPENDECTOMY - COLONOSCOP W/ OR W/O [facility] 12/17/[address] Moore - COLONOSCOP W/ OR W/O [facility] 07/30/2017 Colonoscopy - CRYOCAUTERY OF CERVIX - LAP CHOLECYSTECT/CHOLANGIOGRAPHY 08/30/07 - PAST SURGICAL HISTORY OF hernia - PAST SURGICAL HISTORY OF hand surgery - PAST SURGICAL HISTORY OF BASAL CELL CARCINOMA - REMOVAL OF TONSILS,13+ Y/O - REVISE MEDIAN N/CARPAL TUNNEL SURG 02/15/09 LEFT Prior to Admission medications as of 07/30/17 1412 Medication Sig Last Dose Taking thyroid (ARMOUR THYROID) 60 mg ORAL tablet Take 1 tablet by mouth once daily. 07/29/2017 at 0700 Yes celecoxib (CELEBREX) 200 mg ORAL Cap Take one(1) capsule daily. 07/29/2017 at 1330 Yes clobetasol (TEMOVATE) 0.05 % ointment Apply to affected area twice daily X 2weeks then once daily for 2weeks; then as needed for flare ups 2300 ACETAMINOPHEN (TYLENOL ORAL) Take by mouth as needed. Unknown at Unknown time Multivitamin capsule Take 1 capsule by mouth once daily. Unknown at Unknown time ALLERGIES Allergen Reactions - Sulfa (Sulfonamide * Anaphylaxis OBJECTIVE PHYSICAL EXAM: The remainder of the physical exam is noncontributory. AIRWAY: Airway Visualization of Uvula: Yes Mouth opening greater than 2 fingerbreadths: Yes Neck Full Range of Motion: Yes LUNGS: Lungs clear to auscultation, Good diaphragmatic excursion CARDIAC: Normal S1 and S2; no rubs, murmurs, or gallops ASSESSMENT/PLAN ASA Class: ASA Class:: Patient with mild systemic disease Principal Problem: Family history of colon cancer in mother Assessment AND Plan: Family history of colon cancer/colonoscopy Provisional Diagnosis/Treatment Plan: Family history of colon cancer/colonoscopy SEDATION GOAL: Moderate SIGNATURE: Yong Daniel MD PATIENT NAME: Linda Wilson DATE: July 30, 2017 TIME: 3:42 PM PAGER: NURSING PROG Observed: 07/30/2017 Status: COMPLETED Source: [place] 3:36 PM [facility] REPOSITORY HNO ID: [id number] Author: Mariann LeroyRn) MARY Huber Service: (none) Author Type: Registered Nurse Type: Nursing Progress Note Filed: 07/30/2017 3:36 PM Note Text: Patient did not experience a fall within the Intraoperative area. Patient did not experience a burn within the Intraoperative area. Mariann Huber RN NURSING PROG Observed: 07/30/2017 Status: COMPLETED Source: [place] 3:06 PM [facility] REPOSITORY HNO ID: [id number] Author: Alisa LeroyRnStephanie Mcgovern RN Service: (none) Author Type: Registered Nurse Type: Nursing Progress Note Filed: 07/30/2017 3:08 PM Note Text: [facility] PRE-OP NURSING HAND OFF NOTE SBAR Hand off given to Mariann Huber RN. Hand off was communicated verbally and at the patient's bedside and all questions were answered. FALLS/FARRELL Patient did not experience a fall within the Preoperative area. Patient did not experience a burn within the Preoperative area. Alisa Mcgovern RN NURSING PROG Observed: 07/30/2017 Status: COMPLETED Source: [place] 2:23 PM [facility] REPOSITORY HNO ID: [id number] Author: Nalini LeroyRn) MARY Richter Service: Nursing Author Type: Registered Nurse Type: Nursing Progress Note Filed: 07/30/2017 2:23 PM Note Text: [facility] PRE-OP NURSING HAND OFF NOTE SBAR Hand off given to Alisa Mcgovern RN. Hand off was communicated verbally and at the patient's bedside and all questions were answered. Nalini Richter RN [facility] Observed: 06/13/2017 Status: COMPLETED Source: [place] 12:00 AM [facility] REPOSITORY Patient:Linda Wilson MRN: <[id number]> Height:5' 3(1.6 m) Weight:No patient weight recorded within the last 30 days. Outpatient Medications as of 07/30/17: clobetasol (TEMOVATE) 0.05 % ointment ACETAMINOPHEN (TYLENOL ORAL) Multivitamin capsule thyroid (ARMOUR THYROID) 60 mg ORAL tablet celecoxib (CELEBREX) 200 mg ORAL Cap Admission/Clinic Administered Medications as of 07/30/17: lactated ringers infusion Problem List: Lichen sclerosus [L90.0] Osteoarthritis [M19.90] Family history of colon cancer in mother [Z80.0] Allergies: Allergies have not been reviewed in the past 30 days. Lab Values No results within the last 30 days for the following basenames: K,HCT No progress notes entered within the past 30 days ALLERGIES ALLERGIES DATE TYPE / CODE NAME / CODE REACTION SEVERITY SOURCE 06/16/2015 Drug Sulfa Swelling Unknown [facility] Allergy/416 (Sulfonamide [facility] 290063(SNOM Antibiotics) Repository ED CT) /[id number]( RXNORM) 11/17/2005 Drug SULFA ANAPHYLAXIS High [facility] Class/90246 (SULFONAMIDE [address] [place] [address](SNOMED ANTIBIOTICS) Repository CT) ENCOUNTERS ENCOUNTERS ADMIT/DISCHARGE ACCOUNT ADMITTING ENCOUNTER LOCATION SOURCE NUMBER CLASS 10/02/2018 [id number] [facility] ing:MTLAB Repository 07/17/2018/07/17/[id number] Repository 07/17/2018/07/17/[id number] Repository 07/10/2018 [id number] [facility] ing:MTLAB Repository 04/24/2018 [id number] [facility] ing:MTLAB Repository 01/16/2018/01/17/[id number] Repository 01/16/2018/01/17/[id number] Repository 07/30/2017/07/30/20 [id number] LEANNE [address] Repository PAYERS PAYERS ENCOUNTER GUARANTOR PAYER SUBSCRIBER SOURCE 10/02/2018 SHAHAB [id number] Insurance:MEDICAL SANDERSDOB: [facility] [id number] Number: Repository [id number]: 330 [id number] [phone] (HP) Date:[id number] [address] [address]FZ: 10/02/2018 Secondary NOT GIVENUNK [place] Insurance:SELF PAY [facility] Number: Effective Repository Date:2018-10-02 07/10/2018 SHAHAB [id number] Insurance:MEDICAL SANDERSDOB: [facility] [id number] Number: Repository [id number]: 330 [id number] [phone] (HP) Date:[id number] [address] [address]FT: 07/10/2018 Secondary NOT GIVENUNK [place] Insurance:SELF PAY [facility] Number: Effective Repository Date:2018-07-10 04/24/2018 Shahab [id number] Insurance:MEDICAL SANDERSDOB: [facility] [id number] Number: Repository [id number]: 330 [id number] [phone] (HP) Date:[id number] [place] [address]ET: 04/24/2018 Secondary NOT GIVENUNK [place] Insurance:SELF PAY [facility] Number: Effective Repository Date:2018-04-24
== END ==
PROVIDERS: Family Provider Internal Medicine; PCP Internal Medicine; Referring Provider Internal Medicine Rheumatology; Visit Provider Internal Medicine Rheumatology
DX: M06.4 Inflammatory polyarthropathy (principal); M15.9 Polyosteoarthritis, unspecified; M47.897 Other spondylosis, lumbosacral region; E03.9 Hypothyroidism, unspecified; E78.5 Hyperlipidemia, unspecified; Z79.899 Other long term (current) drug therapy
CPT/HCPCS: 36415; 80053; 85025

== ENCOUNTER → 2018-12-31 15:39 | Outpatient (CLI) | payer OTHER, SELFPAY ==
[2018-12-17 15:20] VITALS: BMI 38.3
[2018-12-31 17:41] LABS: Absolute Lymphocyte Count 1.53 X10^3/ul (0.83-4.51); Absolute Neutrophil Count 3.6 X10^3/uL (2.0-7.7); Basophil# 0.03 X10^3/uL; Basophil% 0.5 % (0-1); Eosinophils% 3.4 % (0-5); Hematocrit 37.2 % (37-47); Hemoglobin 12.4 g/dl (12.0-15.0); Lymphocyte # 1.53 X10^3/ul (4.0); Lymphocyte % 25.6 % (19-41); Mean Corp Hgb Conc 33.3 g/gl (32-36); Mean Corpuscular Hgb 33.5 pg (27.0-32.0); Mean Corpuscular Volume 100.5 fL (81-99); Mean Platelet Vol. 10.3 fl (6.2-12.0); Monocyte# 0.61 X10^3/uL; Monocyte% 10.2 % (0-10); Neutrophil # 3.59 X10^3/uL (2.7-7.7); Neutrophil % 60.1 % (47-70); Platelet Count 338 K/mm3 (150-450); RBC Distribution Width CV 14.4 % (11.6-14.6); RBC Distribution Width SD 50.9 fl (35.1-43.9)
[2018-12-31 17:42] LABS: POSITIVE COUNT NO; POSITIVE DIFFERENTIAL NO; POSITIVE MORPHOLOGY NO
[2018-12-31 18:01] LABS: ALB/GLOB Ratio 1.2 RATIO (0.9-2.4); AST(SGOT) 30 U/L (15-37); Alanine Aminotransfer ALT/SGPT 35 U/L (13-56); Albumin, Serum 3.9 g/dL (3.2-5.0); Alkaline Phosphatase 89 U/L (45-117); Anion Gap 12 (5-15); BUN 23 mg/dL (7-18); Calcium,Total 9.1 mg/dL (8.5-10.1); Chloride 105 mmol/L (98-107); Creatinine, Serum 1.21 mg/dL (0.55-1.02); EST Glomerular Filtration Rate 48 mL/min (>60); Est Glom Filt Rate - Afr Amer 58 mL/min (>60); Globulin 3.2 g/dL (2.2-4.2); Glucose 100 mg/dL (74-106); Protein, Total 7.1 g/dL (6.4-8.2); Sodium Level 142 mmol/L (136-145)
== END ==
PROVIDERS: Family Provider Internal Medicine; PCP Internal Medicine; Referring Provider Internal Medicine Rheumatology; Visit Provider Internal Medicine Rheumatology
DX: M06.4 Inflammatory polyarthropathy (principal); M15.9 Polyosteoarthritis, unspecified; M47.897 Other spondylosis, lumbosacral region; E03.9 Hypothyroidism, unspecified; E78.5 Hyperlipidemia, unspecified; Z79.899 Other long term (current) drug therapy
CPT/HCPCS: 36415; 80053; 85025

== ENCOUNTER → 2019-01-27 15:24 | Outpatient (CLI) | payer OTHER, SELFPAY ==
[2018-12-17 15:20] VITALS: BMI 38.3
[2019-01-27 18:03] LABS: ALB/GLOB Ratio 1.2 RATIO (0.9-2.4); AST(SGOT) 30 U/L (15-37); Alanine Aminotransfer ALT/SGPT 35 U/L (13-56); Albumin, Serum 3.8 g/dL (3.2-5.0); Alkaline Phosphatase 92 U/L (45-117); Anion Gap 4 (5-15); BUN 17 mg/dL (7-18); BUN/Creat Ratio 17.1 RATIO (10-20); Calcium,Total 8.5 mg/dL (8.5-10.1); Chloride 107 mmol/L (98-107); Creatinine, Serum 0.99 mg/dL (0.55-1.02); EST Glomerular Filtration Rate 60 mL/min (>60); Est Glom Filt Rate - Afr Amer 73 mL/min (>60); Globulin 3.2 g/dL (2.2-4.2); Glucose 86 mg/dL (74-106); Potassium 3.9 mmol/L (3.5-5.1); Sodium Level 139 mmol/L (136-145)
== END ==
PROVIDERS: Family Provider Internal Medicine; PCP Internal Medicine; Referring Provider Internal Medicine Rheumatology; Visit Provider Internal Medicine Rheumatology
DX: M06.4 Inflammatory polyarthropathy (principal); M15.9 Polyosteoarthritis, unspecified; M47.897 Other spondylosis, lumbosacral region; E03.9 Hypothyroidism, unspecified; E78.5 Hyperlipidemia, unspecified; Z79.899 Other long term (current) drug therapy
CPT/HCPCS: 36415; 80053

== ENCOUNTER → 2019-04-09 11:51 | Outpatient (CLI) | payer OTHER, SELFPAY ==
[2018-12-17 15:20] VITALS: BMI 38.3
[2019-04-09 14:18] LABS: Absolute Lymphocyte Count 1.44 X10^3/ul (0.83-4.51); Absolute Neutrophil Count 3.4 X10^3/uL (2.0-7.7); Basophil# 0.02 X10^3/uL; Basophil% 0.4 % (0-1); Eosinophil# 0.21 X10^3/uL; Eosinophils% 3.8 % (0-5); Hematocrit 39.2 % (37-47); Hemoglobin 12.9 g/dl (12.0-15.0); Lymphocyte # 1.44 X10^3/ul (4.0); Lymphocyte % 26.1 % (19-41); Mean Corp Hgb Conc 32.9 g/gl (32-36); Mean Corpuscular Hgb 31.9 pg (27.0-32.0); Monocyte# 0.41 X10^3/uL; Monocyte% 7.4 % (0-10); Neutrophil # 3.42 X10^3/uL (2.7-7.7); Neutrophil % 61.9 % (47-70); Platelet Count 305 K/mm3 (150-450); RBC Distribution Width CV 14.4 % (11.6-14.6); RBC Distribution Width SD 49.4 fl (35.1-43.9); Red Blood Count 4.04 M/mm3 (4.2-5.4); White Blood Count 5.5 K/mm3 (4.4-11.0)
[2019-04-09 14:21] LABS: POSITIVE COUNT NO; POSITIVE DIFFERENTIAL NO; POSITIVE MORPHOLOGY NO
[2019-04-09 14:41] LABS: ALB/GLOB Ratio 1.1 RATIO (0.9-2.4); AST(SGOT) 40 U/L (15-37); Alanine Aminotransfer ALT/SGPT 40 U/L (13-56); Albumin, Serum 3.8 g/dL (3.2-5.0); Alkaline Phosphatase 88 U/L (45-117); Anion Gap 10 (5-15); BUN 18 mg/dL (7-18); BUN/Creat Ratio 17.5 RATIO (10-20); Calcium,Total 8.9 mg/dL (8.5-10.1); Chloride 106 mmol/L (98-107); Creatinine, Serum 1.03 mg/dL (0.55-1.02); EST Glomerular Filtration Rate 58 mL/min (>60); Est Glom Filt Rate - Afr Amer 70 mL/min (>60); Globulin 3.5 g/dL (2.2-4.2); Glucose 98 mg/dL (74-106); Potassium 3.8 mmol/L (3.5-5.1); Protein, Total 7.3 g/dL (6.4-8.2); Sodium Level 141 mmol/L (136-145)
== END ==
PROVIDERS: Family Provider Internal Medicine; PCP Internal Medicine; Referring Provider Internal Medicine Rheumatology; Visit Provider Internal Medicine Rheumatology
DX: M06.4 Inflammatory polyarthropathy (principal); M15.9 Polyosteoarthritis, unspecified; M47.897 Other spondylosis, lumbosacral region; E03.9 Hypothyroidism, unspecified; E78.5 Hyperlipidemia, unspecified; Z79.899 Other long term (current) drug therapy
CPT/HCPCS: 36415; 80053; 85025

== ENCOUNTER → 2019-07-04 08:46 | Outpatient (CLI) | payer OTHER, SELFPAY ==
[2018-12-17 15:20] VITALS: BMI 38.3
[2019-07-04 10:00] LABS: Absolute Lymphocyte Count 1.58 X10^3/uL (0.83-4.51); Absolute Neutrophil Count 3.3 X10^3/uL (2.0-7.7); Basophil# 0.03 X10^3/uL; Basophil% 0.6 % (0-1); Eosinophil# 0.16 X10^3/uL; Eosinophils% 2.9 % (0-5); Hematocrit 40.3 % (37-47); Hemoglobin 13.2 g/dL (12.0-15.0); Lymphocyte # 1.58 X10^3/ul (4.0); Mean Corp Hgb Conc 32.8 g/dL (32-36); Mean Corpuscular Volume 100.8 fL (81-99); Mean Platelet Vol. 9.8 fl (6.2-12.0); Monocyte# 0.32 X10^3/uL; Monocyte% 5.9 % (0-10); NRBC Flagged by Analyzer 0 % (0-5); Neutrophil # 3.34 X10^3/uL (2.7-7.7); Neutrophil % 61.4 % (47-70); Platelet Count 302 K/mm3 (150-450); RBC Distribution Width CV 13.6 % (11.6-14.6); RBC Distribution Width SD 50.2 fl (35.1-43.9); White Blood Count 5.4 K/mm3 (4.4-11.0)
[2019-07-04 10:15] LABS: AST(SGOT) 37 U/L (15-37); Alanine Aminotransfer ALT/SGPT 46 U/L (13-56); Albumin, Serum 3.6 g/dL (3.2-5.0); Alkaline Phosphatase 95 U/L (45-117); Anion Gap 10 (5-15); BUN 15 mg/dL (7-18); BUN/Creat Ratio 12.6 RATIO (10-20); Calcium,Total 8.8 mg/dL (8.5-10.1); Chloride 109 mmol/L (98-107); Creatinine, Serum 1.19 mg/dL (0.55-1.02); EST Glomerular Filtration Rate 49 mL/min (>60); Est Glom Filt Rate - Afr Amer 59 mL/min (>60); Globulin 3.6 g/dL (2.2-4.2); Glucose 133 mg/dL (74-106); Protein, Total 7.2 g/dL (6.4-8.2); Sodium Level 144 mmol/L (136-145)
== END ==
PROVIDERS: Family Provider Internal Medicine; PCP Internal Medicine; Referring Provider Internal Medicine Rheumatology; Visit Provider Internal Medicine Rheumatology
DX: M06.4 Inflammatory polyarthropathy (principal); M15.9 Polyosteoarthritis, unspecified; M47.897 Other spondylosis, lumbosacral region; E03.9 Hypothyroidism, unspecified; E78.5 Hyperlipidemia, unspecified; Z79.899 Other long term (current) drug therapy
CPT/HCPCS: 36415; 80053; 85025

== ENCOUNTER → 2019-07-29 15:29 | Outpatient (CLI) | payer OTHER, SELFPAY ==
[2018-12-17 15:20] VITALS: BMI 38.3
[2019-07-29 17:24] LABS: Absolute Lymphocyte Count 1.18 X10^3/uL (0.83-4.51); Absolute Neutrophil Count 3.8 X10^3/uL (2.0-7.7); Basophil# 0.03 X10^3/uL; Basophil% 0.6 % (0-1); Eosinophil# 0.03 X10^3/uL; Eosinophils% 0.6 % (0-5); Hematocrit 36.2 % (37-47); Hemoglobin 11.8 g/dL (12.0-15.0); Lymphocyte # 1.18 X10^3/ul (4.0); Lymphocyte % 21.9 % (19-41); Mean Corp Hgb Conc 32.6 g/dL (32-36); Mean Corpuscular Hgb 32.2 pg (27.0-32.0); Mean Corpuscular Volume 98.9 fL (81-99); Mean Platelet Vol. 9.7 fl (6.2-12.0); Monocyte# 0.36 X10^3/uL; Monocyte% 6.7 % (0-10); NRBC Flagged by Analyzer 0 % (0-5); Neutrophil # 3.75 X10^3/uL (2.7-7.7); Neutrophil % 69.6 % (47-70); Platelet Count 297 K/mm3 (150-450); RBC Distribution Width CV 13.7 % (11.6-14.6); Red Blood Count 3.66 M/mm3 (4.2-5.4); White Blood Count 5.4 K/mm3 (4.4-11.0)
[2019-07-29 18:03] LABS: ALB/GLOB Ratio 1.1 RATIO (0.9-2.4); AST(SGOT) 34 U/L (15-37); Alanine Aminotransfer ALT/SGPT 41 U/L (13-56); Albumin, Serum 3.7 g/dL (3.2-5.0); Alkaline Phosphatase 92 U/L (45-117); Anion Gap 8 (5-15); BUN 23 mg/dL (7-18); BUN/Creat Ratio 23.2 RATIO (10-20); Calcium,Total 9.1 mg/dL (8.5-10.1); Chloride 105 mmol/L (98-107); Creatinine, Serum 0.99 mg/dL (0.55-1.02); EST Glomerular Filtration Rate 60 mL/min (>60); Est Glom Filt Rate - Afr Amer 73 mL/min (>60); Globulin 3.4 g/dL (2.2-4.2); Glucose 94 mg/dL (74-106); Potassium 4.1 mmol/L (3.5-5.1); Protein, Total 7.1 g/dL (6.4-8.2); Sodium Level 139 mmol/L (136-145)
== END ==
PROVIDERS: Family Provider Internal Medicine; PCP Internal Medicine; Referring Provider Internal Medicine Rheumatology; Visit Provider Internal Medicine Rheumatology
DX: M06.4 Inflammatory polyarthropathy (principal); M15.9 Polyosteoarthritis, unspecified; M47.897 Other spondylosis, lumbosacral region; E03.9 Hypothyroidism, unspecified; E78.5 Hyperlipidemia, unspecified; Z79.899 Other long term (current) drug therapy
CPT/HCPCS: 36415; 80053; 85025

== ENCOUNTER 2019-10-10 16:00 | Outpatient (RCR) | payer OTHER, SELFPAY ==
[2018-12-17 15:20] VITALS: BMI 38.3
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
--- NOTE | 2019-11-10 10:18 | HP.PTDCNRP_ITS ---
HP - Discharge Summary (1) - Patient Information NASREEN DUVAL was seen in my office for initial evaluation on 08/25/19. The following Plan of Care was established for this patient: Initial Frequency: 2-3x /Week Initial Duration: 4-6 Weeks - Anticipated Interventions Patient/Client Instruction: Educate patient on: Condition, Plan of Care, Risk Factors, Benefits of Fitness Program For the Purpose of:: To improve self management Therapeutic Exercise to Include: Strength training, Body mechanics, Postural training, Flexibilty training, Gait and locomotor training, In an aquatic setting, Dynamic Lumbar Stabilization For the Purpose of:: To decrease pain, To increase ROM, To improve muscle performance and motor function, To increase tolerance to activity/co ndition/position, To improve ability of physical actions for home/community/work/leisure, To improve gait and locomotor functions This patient was last seen in our office 10/10/19. Pertinent comments regarding their Physical therapy will appear below: This patient has not returned to Physical Therapy and is appropriate to return to MD for further follow-up as needed. At this point I will be discontinuing this patient from physical therapy. I would be happy to see this patient again in the future if found appropriate by the physician. Thank you! Renetta Tello, PT, Cert MDT
== END 2019-10-10 19:00 | disposition home or self-care (01) ==
LOC: PT 16:00
PROVIDERS: Family Provider Internal Medicine; PCP Internal Medicine; Referring Provider Specialist; Visit Provider Specialist
DX: M46.07 Spinal enthesopathy, lumbosacral region (principal); M16.0 Bilateral primary osteoarthritis of hip; M54.5 Low back pain
CPT/HCPCS: 97113; 97162; 97530

== ENCOUNTER → 2019-11-03 15:11 | Outpatient (CLI) | payer OTHER, SELFPAY ==
[2018-12-17 15:20] VITALS: BMI 38.3
[2019-11-03 17:57] LABS: ALB/GLOB Ratio 1.2 RATIO (0.9-2.4); AST(SGOT) 23 U/L (15-37); Alanine Aminotransfer ALT/SGPT 34 U/L (13-56); Alkaline Phosphatase 88 U/L (45-117); Anion Gap 5 (5-15); BUN 16 mg/dL (7-18); BUN/Creat Ratio 14.5 RATIO (10-20); Chloride 106 mmol/L (98-107); EST Glomerular Filtration Rate 53 mL/min (>60); Est Glom Filt Rate - Afr Amer 65 mL/min (>60); Globulin 3.2 g/dL (2.2-4.2); Glucose 89 mg/dL (74-106); Protein, Total 7.2 g/dL (6.4-8.2); Sodium Level 140 mmol/L (136-145)
[2019-11-03 18:02] LABS: Absolute Lymphocyte Count 1.46 X10^3/uL (0.83-4.51); Absolute Neutrophil Count 3.9 X10^3/uL (2.0-7.7); Basophil# 0.05 X10^3/uL; Basophil% 0.8 % (0-1); Eosinophil# 0.18 X10^3/uL; Eosinophils% 2.9 % (0-5); Hemoglobin 12.1 g/dL (12.0-15.0); Lymphocyte # 1.46 X10^3/ul (4.0); Lymphocyte % 23.7 % (19-41); Mean Corp Hgb Conc 31.8 g/dL (32-36); Mean Corpuscular Hgb 31.6 pg (27.0-32.0); Mean Corpuscular Volume 99.2 fL (81-99); Mean Platelet Vol. 9.8 fl (6.2-12.0); Monocyte# 0.53 X10^3/uL; Monocyte% 8.6 % (0-10); NRBC Flagged by Analyzer 0 % (0-5); Neutrophil # 3.92 X10^3/uL (2.7-7.7); Neutrophil % 63.7 % (47-70); Platelet Count 334 K/mm3 (150-450); RBC Distribution Width CV 14.4 % (11.6-14.6); Red Blood Count 3.83 M/mm3 (4.2-5.4); White Blood Count 6.2 K/mm3 (4.4-11.0)
== END ==
PROVIDERS: Family Provider Internal Medicine; PCP Internal Medicine; Referring Provider Internal Medicine Rheumatology; Visit Provider Internal Medicine Rheumatology
DX: M06.4 Inflammatory polyarthropathy (principal); Z79.899 Other long term (current) drug therapy; M15.9 Polyosteoarthritis, unspecified; M47.897 Other spondylosis, lumbosacral region
CPT/HCPCS: 36415; 80053; 85025

== ENCOUNTER → 2019-11-26 07:50 | Outpatient (CLI) | payer OTHER, SELFPAY ==
[2018-12-17 15:20] VITALS: BMI 38.3
[2019-11-26 10:02] LABS: Absolute Lymphocyte Count 1.13 X10^3/uL (0.83-4.51); Absolute Neutrophil Count 3.9 X10^3/uL (2.0-7.7); Basophil# 0.03 X10^3/uL; Basophil% 0.5 % (0-1); Eosinophil# 0.17 X10^3/uL; Hematocrit 40.1 % (37-47); Hemoglobin 12.7 g/dL (12.0-15.0); Lymphocyte # 1.13 X10^3/ul (4.0); Lymphocyte % 19.8 % (19-41); Mean Corp Hgb Conc 31.7 g/dL (32-36); Mean Corpuscular Hgb 31.3 pg (27.0-32.0); Mean Corpuscular Volume 98.8 fL (81-99); Mean Platelet Vol. 9.6 fl (6.2-12.0); Monocyte# 0.46 X10^3/uL; NRBC Flagged by Analyzer 0 % (0-5); Neutrophil # 3.91 X10^3/uL (2.7-7.7); Neutrophil % 68.4 % (47-70); Platelet Count 312 K/mm3 (150-450); RBC Distribution Width CV 14.6 % (11.6-14.6); RBC Distribution Width SD 53.4 fl (35.1-43.9); Red Blood Count 4.06 M/mm3 (4.2-5.4); White Blood Count 5.7 K/mm3 (4.4-11.0)
[2019-11-26 10:56] LABS: ALB/GLOB Ratio 1.1 RATIO (0.9-2.4); AST(SGOT) 23 U/L (15-37); Alanine Aminotransfer ALT/SGPT 29 U/L (13-56); Albumin, Serum 3.7 g/dL (3.2-5.0); Alkaline Phosphatase 80 U/L (45-117); Anion Gap 3 (5-15); BUN 13 mg/dL (7-18); BUN/Creat Ratio 12.5 RATIO (10-20); Chloride 109 mmol/L (98-107); Creatinine, Serum 1.04 mg/dL (0.55-1.02); EST Glomerular Filtration Rate 57 mL/min (>60); Est Glom Filt Rate - Afr Amer 69 mL/min (>60); Free T3 3.1 pg/mL (2.18-3.98); Globulin 3.3 g/dL (2.2-4.2); Glucose 96 mg/dL (74-106); Potassium 4.4 mmol/L (3.5-5.1); Sodium Level 141 mmol/L (136-145); T4 Free Direct 0.88 ng/dL (0.76-1.46); Thyroid Stim Hormone (TSH) 2.71 uIU/mL (0.358-3.74)
[2019-11-27 15:57] LABS: Thyroid Peroxidase AB 12 IU/mL (0-34)
[2019-11-28 12:08] LABS: CHOLESTEROL TOTAL 198 mg/dL (100-199); HDL-C 55 mg/dL (>39); HDL-P TOTAL 37.2 umol/L (>=30.5); SMALL LDL-P 521 nmol/L (<=527); TRIGLYCERIDES 166 mg/dL (0-149)
[2019-11-28 13:37] LABS: INSULIN RESISTANCE SCORE 57 (<=45); LDL SIZE 20.8 nm (>20.5); LDL-C 110 mg/dL (0-99); LDL-P 1082 nmol/L (<1000)
== END ==
LOC: MTLAB 07:53
PROVIDERS: PCP Internal Medicine; Referring Provider Internal Medicine; Visit Provider Internal Medicine
DX: E78.00 Pure hypercholesterolemia, unspecified (principal); E03.9 Hypothyroidism, unspecified; D64.9 Anemia, unspecified
CPT/HCPCS: 36415; 80053; 80061; 83704; 84439; 84443; 84481; 85025; 86376

== ENCOUNTER → 2019-12-10 14:06 | Outpatient (CLI) | payer SELFPAY ==
[2018-12-17 15:20] VITALS: BMI 38.3
--- NOTE | 2019-12-10 14:10 | CT_ITS ---
STUDY: CARDIAC CALCIUM SCORING - CT CHEST REASON FOR EXAM: Female, 64 years old. FAMILY HISTORY OF CAD. RADIATION DOSAGE (If Supplied By Facility): CTDIvol = ( 12.19 ) mGy, DLP = ( 195.04 ) mGycm TECHNIQUE: Axial non-enhanced images were acquired through the heart for the sole purpose of measuring coronary artery calcium. Individualized dose optimization techniques were used for this CT. COMPARISON: None. FINDINGS: Please see the patient''s medical record for a personalized calcium score. The visualized lungs are clear. There is fatty infiltration of the liver. CT/Limited Chest CT w/CCTA IMPRESSION: Please see the patient''s medical record for a personalized calcium score. Fatty liver. Please go to: [email or web address] , for a description of the calculator. Electronically Signed: Antwan Hobbs, at 21:50 EST Tel , Service support ,
[2019-12-10 14:19] VITALS: BP 121/63; PULSE 70; RESP 16; O2SAT 98; BMI 40.1
--- NOTE | 2019-12-10 16:03 | CA.SCORE ---
Calcium Scoring Date of Study:: 12/10/19 Coronary Calcium Scoring: High-resolution Computed Tomographic imaging of the chest was performed on [ 12/10/2019], with particular attention paid to the coronary arteries. Images from the examination were analyzed for the presence and extent of coronary artery calcification , using coronary calcium quantification software. The patient tolerated the procedure well and there were no complications. The results of the coronary calcification analysis are provided below. - Findings Left Main (LM): 23.6 Left Anterior Descending (LAD): 4.37 Left Circumflex (LCX): 0 Right Coronary Artery (RCA): 0 Total Agatston Score: 27.97 Percentile Rankin-75% Calcium Scoring Interpretation: 0 No identifiable atherosclerotic plaque. Very low cardiovascular disease risk. <5% chance of presence coronary artery disease A Negative Examination 1-10 Minimal Plaque burden. Significant coronary artery disease very unlikely. 11-100 Mild plaque burden. Likely mild or minimal coronary atherosclerosis. 101-400 Moderate plaque burden Moderate non-obstructive coronary artery disease highly likely. Over 400 Extensive plaque burden. High likelihood of at least one significant coronary stenosis (>50% diameter) Conclusion: Total calcium score (28.0) is between the 50th and 75th percentile for women between the ages of 60 and 64. (Exact percentile calculated to be 60%; this means 59% of the population has a lower calcium score and 40% of the population has a higher calcium score than this patient.) Full evaluation of cardiac risk include an assessment of all conventional risk factors and the scores and percentile rankings reported herein should be evaluated in this context.
== END ==
PROVIDERS: PCP Internal Medicine; Referring Provider Internal Medicine; Visit Provider Internal Medicine
DX: Z82.49 Family history of ischemic heart disease and other diseases of the circulatory system (principal)
CPT/HCPCS: 75571; 76380

== ENCOUNTER → 2020-06-02 12:12 | Outpatient (CLI) | payer OTHER, SELFPAY ==
[2020-01-11 12:39] VITALS: BMI 40.1
[2020-06-02 15:20] LABS: Absolute Lymphocyte Count 1.71 X10^3/uL (0.83-4.51); Absolute Neutrophil Count 3.8 X10^3/uL (2.0-7.7); Basophil# 0.03 X10^3/uL; Basophil% 0.5 % (0-1); Eosinophil# 0.18 X10^3/uL; Eosinophils% 2.9 % (0-5); Hemoglobin 13.5 g/dL (12.0-15.0); Lymphocyte # 1.71 X10^3/ul (4.0); Lymphocyte % 27.7 % (19-41); Mean Corp Hgb Conc 32.1 g/dL (32-36); Mean Corpuscular Hgb 30.6 pg (27.0-32.0); Mean Corpuscular Volume 95.2 fL (81-99); Mean Platelet Vol. 10.2 fl (6.2-12.0); Monocyte# 0.48 X10^3/uL; Monocyte% 7.8 % (0-10); NRBC Flagged by Analyzer 0 % (0-5); Neutrophil # 3.76 X10^3/uL (2.7-7.7); Neutrophil % 60.8 % (47-70); Platelet Count 340 K/mm3 (150-450); RBC Distribution Width CV 13.4 % (11.6-14.6); RBC Distribution Width SD 46.5 fl (35.1-43.9); Red Blood Count 4.41 M/mm3 (4.2-5.4); White Blood Count 6.2 K/mm3 (4.4-11.0)
[2020-06-02 15:39] LABS: ALB/GLOB Ratio 1.1 RATIO (0.9-2.4); AST(SGOT) 23 U/L (15-37); Alanine Aminotransfer ALT/SGPT 27 U/L (13-56); Albumin, Serum 3.8 g/dL (3.2-5.0); Alkaline Phosphatase 91 U/L (45-117); Anion Gap 6 (5-15); BUN 12 mg/dL (7-18); BUN/Creat Ratio 10.5 RATIO (10-20); Chloride 105 mmol/L (98-107); Creatinine, Serum 1.14 mg/dL (0.55-1.02); EST Glomerular Filtration Rate 51 mL/min (>60); Est Glom Filt Rate - Afr Amer 62 mL/min (>60); Globulin 3.5 g/dL (2.2-4.2); Glucose 102 mg/dL (74-106); Potassium 3.6 mmol/L (3.5-5.1); Protein, Total 7.3 g/dL (6.4-8.2); Sodium Level 139 mmol/L (136-145)
== END ==
PROVIDERS: PCP Internal Medicine; Referring Provider Internal Medicine Rheumatology; Visit Provider Internal Medicine Rheumatology
DX: M06.4 Inflammatory polyarthropathy (principal); M47.897 Other spondylosis, lumbosacral region; E78.5 Hyperlipidemia, unspecified; E03.9 Hypothyroidism, unspecified; M15.9 Polyosteoarthritis, unspecified; Z79.899 Other long term (current) drug therapy
CPT/HCPCS: 36415; 80053; 85025

== ENCOUNTER → 2020-12-01 10:23 | Outpatient (CLI) | payer OTHER, SELFPAY ==
[2020-01-11 12:39] VITALS: BMI 40.1
[2020-12-01 12:19] LABS: Absolute Lymphocyte Count 1.59 X10^3/uL (0.83-4.51); Absolute Neutrophil Count 3.3 X10^3/uL (2.0-7.7); Basophil# 0.03 X10^3/uL; Basophil% 0.5 % (0-1); Eosinophils% 3.6 % (0-5); Hematocrit 41.6 % (37-47); Hemoglobin 13.5 g/dL (12.0-15.0); Lymphocyte # 1.59 X10^3/ul (4.0); Lymphocyte % 28.2 % (19-41); Mean Corp Hgb Conc 32.5 g/dL (32-36); Mean Corpuscular Hgb 30.5 pg (27.0-32.0); Mean Corpuscular Volume 94.1 fL (81-99); Mean Platelet Vol. 9.8 fl (6.2-12.0); Monocyte# 0.48 X10^3/uL; Monocyte% 8.5 % (0-10); NRBC Flagged by Analyzer 0 % (0-5); Neutrophil # 3.31 X10^3/uL (2.7-7.7); Neutrophil % 58.8 % (47-70); Platelet Count 331 K/mm3 (150-450); RBC Distribution Width CV 13.2 % (11.6-14.6); RBC Distribution Width SD 45.4 fl (35.1-43.9); Red Blood Count 4.42 M/mm3 (4.2-5.4); White Blood Count 5.6 K/mm3 (4.4-11.0)
[2020-12-01 13:35] LABS: AST(SGOT) 22 U/L (15-37); Alanine Aminotransfer ALT/SGPT 25 U/L (13-56); Albumin, Serum 3.7 g/dL (3.2-5.0); Alkaline Phosphatase 90 U/L (45-117); Anion Gap 4 (5-15); BUN 15 mg/dL (7-18); BUN/Creat Ratio 13.8 RATIO (10-20); Calcium,Total 8.7 mg/dL (8.5-10.1); Chloride 106 mmol/L (98-107); Creatinine, Serum 1.09 mg/dL (0.55-1.02); EST Glomerular Filtration Rate 54 mL/min (>60); Est Glom Filt Rate - Afr Amer 65 mL/min (>60); Globulin 3.6 g/dL (2.2-4.2); Glucose 93 mg/dL (74-106); Protein, Total 7.3 g/dL (6.4-8.2); Sodium Level 139 mmol/L (136-145)
== END ==
PROVIDERS: PCP Internal Medicine; Referring Provider Internal Medicine Rheumatology; Visit Provider Internal Medicine Rheumatology
DX: M06.4 Inflammatory polyarthropathy (principal); M15.9 Polyosteoarthritis, unspecified; M47.897 Other spondylosis, lumbosacral region; E03.9 Hypothyroidism, unspecified; E78.5 Hyperlipidemia, unspecified; Z79.899 Other long term (current) drug therapy
CPT/HCPCS: 36415; 80053; 85025

== ENCOUNTER → 2021-01-06 13:33 | Outpatient (CLI) | payer OTHER, SELFPAY ==
[2020-01-11 12:39] VITALS: BMI 40.1
--- NOTE | 2021-01-06 13:36 | BI_ITS ---
MAMMOGRAPHY - BILATERAL SCREENING REASON FOR EXAM: Female, 65 years old. Routine annual screening examination. PERTINENT HISTORY: Sister with breast cancer. TECHNIQUE: Digital bilateral breast aaron (3D mammographic acquisition) in the CC and MLO projections. 2-D mediolateral oblique (MLO) and craniocaudad (CC) views of both breasts were obtained. CAD: Full Field Digital Mammography with Computer Added Detection was performed. COMPARISON: Comparison is made with prior outside examination dated 11/21/2019. FINDINGS: Breast Composition: There are scattered areas of fibroglandular density. There are no dominant masses or suspicious calcifications. Stable benign-appearing small bilateral axillary lymph nodes. No other significant abnormalities are identified. There has been no significant change since the prior study. BI/SCRN MAMM (CAD)W/AARON BILAT IMPRESSION: Stable bilateral screening mammogram. Yearly follow-up mammogram recommended. (A) ASSESSMENT CATEGORY: BIRADS Category 2: Benign. A letter regarding these results will be sent to the patient by the facility within 30 days. Approximately 10% of breast cancers are not detected by mammography. A normal mammogram should not delay biopsy of a clinically suspicious abnormality. [id number] Electronically Signed: Mandeep Morelos MD at 14:21 EST , Service support ,
== END ==
PROVIDERS: PCP Internal Medicine; Referring Provider Internal Medicine; Visit Provider Internal Medicine
DX: Z12.31 Encounter for screening mammogram for malignant neoplasm of breast (principal)
CPT/HCPCS: 77063; 77067

== ENCOUNTER → 2021-06-01 09:13 | Outpatient (CLI) | payer OTHER, SELFPAY ==
[2021-04-27 08:23] VITALS: BMI 40.1
[2021-06-01 10:11] LABS: Absolute Lymphocyte Count 1.67 X10^3/uL (0.83-4.51); Absolute Neutrophil Count 3.1 X10^3/uL (2.0-7.7); Basophil# 0.04 X10^3/uL; Basophil% 0.7 % (0-1); Eosinophil# 0.16 X10^3/uL; Eosinophils% 2.9 % (0-5); Hematocrit 39.9 % (37-47); Hemoglobin 12.9 g/dL (12.0-15.0); Lymphocyte # 1.67 X10^3/ul (0.83-4.51); Lymphocyte % 29.8 % (19-41); Mean Corp Hgb Conc 32.3 g/dL (32-36); Mean Corpuscular Volume 92.8 fL (81-99); Mean Platelet Vol. 9.4 fl (6.2-12.0); Monocyte# 0.58 X10^3/uL; Monocyte% 10.4 % (0-10); NRBC Flagged by Analyzer 0 % (0-5); Neutrophil # 3.12 X10^3/uL (2.7-7.7); Neutrophil % 55.7 % (47-70); Platelet Count 364 K/mm3 (150-450); RBC Distribution Width CV 14.1 % (11.6-14.6); RBC Distribution Width SD 47.1 fl (35.1-43.9); White Blood Count 5.6 K/mm3 (4.4-11.0)
[2021-06-01 10:44] LABS: AST(SGOT) 24 U/L (15-37); Alanine Aminotransfer ALT/SGPT 28 U/L (13-56); Albumin, Serum 3.7 g/dL (3.2-5.0); Alkaline Phosphatase 88 U/L (45-117); Anion Gap 6 (5-15); BUN 14 mg/dL (7-18); BUN/Creat Ratio 13.7 RATIO (10-20); Calcium,Total 8.8 mg/dL (8.5-10.1); Chloride 104 mmol/L (98-107); Creatinine, Serum 1.02 mg/dL (0.55-1.02); EST Glomerular Filtration Rate 58 mL/min (>60); Est Glom Filt Rate - Afr Amer 70 mL/min (>60); Globulin 3.8 g/dL (2.2-4.2); Glucose 95 mg/dL (74-106); Protein, Total 7.5 g/dL (6.4-8.2); Sodium Level 138 mmol/L (136-145)
== END ==
PROVIDERS: PCP Internal Medicine; Referring Provider Internal Medicine Rheumatology; Visit Provider Internal Medicine Rheumatology
DX: M06.4 Inflammatory polyarthropathy (principal); M15.9 Polyosteoarthritis, unspecified; M47.897 Other spondylosis, lumbosacral region; E03.9 Hypothyroidism, unspecified; E78.5 Hyperlipidemia, unspecified; Z79.899 Other long term (current) drug therapy
CPT/HCPCS: 36415; 80053; 85025

== ENCOUNTER → 2021-08-24 10:57 | Outpatient (CLI) | payer OTHER, SELFPAY ==
[2021-08-24 12:03] LABS: Absolute Lymphocyte Count 1.77 X10^3/uL (0.83-4.51); Absolute Neutrophil Count 3.9 X10^3/uL (2.0-7.7); Basophil# 0.05 X10^3/uL; Basophil% 0.8 % (0-1); Eosinophil# 0.18 X10^3/uL; Eosinophils% 2.8 % (0-5); Hematocrit 41.4 % (37-47); Hemoglobin 13.3 g/dL (12.0-15.0); Lymphocyte # 1.77 X10^3/ul (0.83-4.51); Lymphocyte % 27.4 % (19-41); Mean Corp Hgb Conc 32.1 g/dL (32-36); Mean Corpuscular Hgb 30.4 pg (27.0-32.0); Mean Corpuscular Volume 94.5 fL (81-99); Mean Platelet Vol. 9.7 fl (6.2-12.0); Monocyte# 0.57 X10^3/uL; Monocyte% 8.8 % (0-10); NRBC Flagged by Analyzer 0 % (0-5); Neutrophil # 3.85 X10^3/uL (2.7-7.7); Neutrophil % 59.7 % (47-70); Platelet Count 323 K/mm3 (150-450); RBC Distribution Width CV 13.2 % (11.6-14.6); RBC Distribution Width SD 45.9 fl (35.1-43.9); Red Blood Count 4.38 M/mm3 (4.2-5.4); White Blood Count 6.5 K/mm3 (4.4-11.0)
[2021-08-24 12:26] LABS: ALB/GLOB Ratio 0.9 RATIO (0.9-2.4); AST(SGOT) 21 U/L (15-37); Alanine Aminotransfer ALT/SGPT 23 U/L (13-56); Albumin, Serum 3.5 g/dL (3.2-5.0); Alkaline Phosphatase 92 U/L (45-117); Anion Gap 6 (5-15); BUN 14 mg/dL (7-18); BUN/Creat Ratio 13.7 RATIO (10-20); Calcium,Total 8.9 mg/dL (8.5-10.1); Chloride 105 mmol/L (98-107); Creatinine, Serum 1.02 mg/dL (0.55-1.02); EST Glomerular Filtration Rate 58 mL/min (>60); Est Glom Filt Rate - Afr Amer 70 mL/min (>60); Globulin 3.7 g/dL (2.2-4.2); Glucose 91 mg/dL (74-106); Potassium 3.8 mmol/L (3.5-5.1); Protein, Total 7.2 g/dL (6.4-8.2); Sodium Level 139 mmol/L (136-145)
== END ==
PROVIDERS: PCP Internal Medicine; Referring Provider Internal Medicine Rheumatology; Visit Provider Internal Medicine Rheumatology
DX: M06.4 Inflammatory polyarthropathy (principal); M15.9 Polyosteoarthritis, unspecified; M47.897 Other spondylosis, lumbosacral region; E03.9 Hypothyroidism, unspecified; E78.5 Hyperlipidemia, unspecified; Z79.899 Other long term (current) drug therapy
CPT/HCPCS: 36415; 80053; 85025

== ENCOUNTER 2022-02-01 10:09 | Outpatient (CLI) | payer MEDICARE, SELFPAY ==
--- NOTE | 2022-02-01 10:13 | BI_ITS ---
MAMMOGRAPHY - BILATERAL SCREENING REASON FOR EXAM: Female, 66 years old. Routine annual screening examination. PERTINENT HISTORY: Sister with breast cancer. TECHNIQUE: Digital bilateral breast aaron (3D mammographic acquisition) in the CC and MLO projections. 2-D mediolateral oblique (MLO) and craniocaudad (CC) views of both breasts were obtained. CAD: Full Field Digital Mammography with Computer Added Detection was performed. COMPARISON: Comparison is made with prior examination dated 01/06/2021. FINDINGS: Breast Composition: There are scattered areas of fibroglandular density. There are no dominant masses or suspicious calcifications. Stable small benign-appearing bilateral axillary lymph nodes. No other significant abnormalities are identified. There has been no significant change since the prior study. BI/SCRN MAMM (CAD)W/AARON BILAT IMPRESSION: Stable bilateral screening mammogram. Yearly follow-up mammogram recommended. (A) ASSESSMENT CATEGORY: BIRADS Category 2: Benign. A letter regarding these results will be sent to the patient by the facility within 30 days. Approximately 10% of breast cancers are not detected by mammography. A normal mammogram should not delay biopsy of a clinically suspicious abnormality. [id number] Electronically Signed: Mandeep Morelos MD at 12:16 EDT ,
--- NOTE | 2022-02-01 10:23 | BD_ITS ---
STUDY: DUAL ENERGY X-RAY ABSORPTIOMETRY / DXA REASON FOR EXAM: Female, 66 years old. [id number]. The patient is postmenopausal. TECHNIQUE: Bone Mineral Density (BMD) measurements of lumbar spine and bilateral hips were obtained. COMPARISON: None. FINDINGS: Lumbar Spine (L1-L4): g/cm2 (1.203) / T-score (1.4) / Z-score (3.2) Findings are suggestive of normal bone density with a low fracture risk. Left Femur Total: g/cm2 (0.767) / T-score (-1.4) / Z-score (-0.2) Left Femoral Neck: g/cm2 (0.5-0) / T-score (-3.0) / Z-score (-1.4) Right Femur Total: g/cm2 (0.803) / T-score (-1.1) / Z-score (0.1) Right Femoral Neck: g/cm2 (0.590) / T-score (-2.3) / Z-score (0.8) BD/Dexa Bone Density Study IMPRESSION: The patient is considered osteoporotic as outlined below according to World Leroy Organization (WHO) criteria with a high fracture risk. Reference Information: The T-score is the number of standard deviations above or below the standard which is normal for young adults at their peak bone mineral density. The World Health Organization (WHO) interprets the T-scores as follows: Above -1 Normal bone density Between -1 and -2.5 Osteopenia Equal to / or below -2.5 Osteoporosis As a practical clinical guideline, osteopenia may be graded as follows: Mild -1 through -1.5 Moderate -1.6 through -2.0 Severe -2.1 through -2.4 The Z-score is the number of standard deviations above or below age-matched controls. A Z-score of less than -1.5 would be considered abnormal. References: 1. NIH Osteoporosis and Related Bone Diseases www osteo.org 2. International Society for Clinical Densitometry www iscd.org 3. National Osteoporosis Foundation www nof.org Electronically Signed: Mandeep Morelos MD at 10:36 EDT ,
== END 2022-02-01 23:59 | disposition home or self-care (01) ==
LOC: OPBD 10:10
PROVIDERS: PCP Internal Medicine; Visit Provider Internal Medicine
DX: Z12.31 Encounter for screening mammogram for malignant neoplasm of breast (principal); Z80.3 Family history of malignant neoplasm of breast; Z78.0 Asymptomatic menopausal state
CPT/HCPCS: 77063; 77067; 77080

== ENCOUNTER 2022-02-14 09:37 | Outpatient (CLI) | payer MEDICARE, SELFPAY ==
[2022-02-14 12:12] LABS: Absolute Lymphocyte Count 1.81 X10^3/uL (0.83-4.51); Absolute Neutrophil Count 2.5 X10^3/uL (2.0-7.7); Basophil# 0.04 X10^3/uL; Basophil% 0.8 % (0-1); Eosinophil# 0.15 X10^3/uL; Hematocrit 41.3 % (37-47); Hemoglobin 13.1 g/dL (12.0-15.0); Lymphocyte # 1.81 X10^3/ul (0.83-4.51); Mean Corp Hgb Conc 31.7 g/dL (32-36); Mean Corpuscular Hgb 29.9 pg (27.0-32.0); Mean Corpuscular Volume 94.3 fL (81-99); Monocyte# 0.54 X10^3/uL; Monocyte% 10.7 % (0-10); NRBC Flagged by Analyzer 0 % (0-5); Neutrophil # 2.47 X10^3/uL (2.7-7.7); Neutrophil % 49.1 % (47-70); Platelet Count 289 K/mm3 (150-450); RBC Distribution Width CV 13.5 % (11.6-14.6); RBC Distribution Width SD 47.1 fl (35.1-43.9); Red Blood Count 4.38 M/mm3 (4.2-5.4)
[2022-02-14 12:37] LABS: AST(SGOT) 25 U/L (15-37); Alanine Aminotransfer ALT/SGPT 28 U/L (13-56); Albumin, Serum 3.6 g/dL (3.2-5.0); Alkaline Phosphatase 91 U/L (45-117); Anion Gap 6 (5-15); BUN 14 mg/dL (7-18); BUN/Creat Ratio 12.6 RATIO (10-20); Calcium,Total 8.6 mg/dL (8.5-10.1); Chloride 106 mmol/L (98-107); Creatinine, Serum 1.11 mg/dL (0.55-1.02); EST Glomerular Filtration Rate 52 mL/min (>60); Est Glom Filt Rate - Afr Amer 63 mL/min (>60); Globulin 3.5 g/dL (2.2-4.2); Glucose 98 mg/dL (74-106); Potassium 3.8 mmol/L (3.5-5.1); Protein, Total 7.1 g/dL (6.4-8.2); Sodium Level 138 mmol/L (136-145)
== END 2022-02-14 23:59 | disposition home or self-care (01) ==
LOC: MTLAB 09:38
PROVIDERS: PCP Internal Medicine; Referring Provider Internal Medicine Rheumatology; Visit Provider Internal Medicine Rheumatology
DX: M06.4 Inflammatory polyarthropathy (principal); M15.9 Polyosteoarthritis, unspecified; M47.897 Other spondylosis, lumbosacral region; E03.9 Hypothyroidism, unspecified; E78.5 Hyperlipidemia, unspecified
CPT/HCPCS: 36415; 80053; 85025

== ENCOUNTER → 2022-03-03 | Outpatient (CLI) | payer MEDICARE, SELFPAY ==
--- NOTE | 2022-03-03 11:33 | US_ITS ---
STUDY: THYROID ULTRASOUND REASON FOR EXAM: Female, 66 years old. HYPERPARATHYROIDISM TECHNIQUE: Ultrasound evaluation of the thyroid was performed with real-time and static sharma-scale imaging. COMPARISON: None. FINDINGS: RIGHT LOBE: The right lobe of the thyroid gland measures 4.4 x 1.8 cm. There is a homogeneous echotexture. There are nodules. Largest nodule is in the lower pole measuring 12 x 7 mm. The lesion is solid with regular margins and intra-nodular doppler flow. 2nd nodule is 7.6 x 7.1mm. LEFT LOBE: The left lobe of the thyroid gland measures 3.7 x 1.2 cm. There is a homogeneous echotexture. There are 2 nodules. Calcified nodule measures 3 x 3 x 2 mm. Cystic nodule measures 6 x 5 mm.The lesion is cystic with regular margins and intra-nodular doppler flow. ISTHMUS: The isthmus measures 1.9 mm. US/Thyroid IMPRESSION: There are RIGHT nodules. This nodule is solid or almost completely solid, hyperechoic or isoechoic, [id number], smoothly marginated and contains no echogenic foci. TI-RADS points: 3. TI-RADS category: TR3. This nodule is mildly suspicious but no FNA or follow-up is necessary given the small size of this nodule. The calcified 3mm left nodules. This nodule is of uncertain composition due to calcification, is of indeterminate echogenicity, [id number], margins cannot be determined, contains microcalcifications and is peripherally calcified. TI-RADS points: 6. TI-RADS category: TR4. This nodule is moderately suspicious but no FNA or follow-up is necessary given the small size of this nodule. Electronically Signed: Yannick Mendosa MD at 19:15 EDT ,
== END | disposition home or self-care (01) ==
LOC: US 11:32
PROVIDERS: PCP Internal Medicine; Referring Provider Internal Medicine; Visit Provider Internal Medicine
DX: E21.3 Hyperparathyroidism, unspecified (principal)
CPT/HCPCS: 76536

== ENCOUNTER → 2022-06-15 | Outpatient (CLI) | payer MEDICARE, SELFPAY ==
[2022-06-15 10:13] LABS: Absolute Lymphocyte Count 2.17 X10^3/uL (0.83-4.51); Absolute Neutrophil Count 3.7 X10^3/uL (2.0-7.7); Basophil# 0.05 X10^3/uL; Basophil% 0.8 % (0-1); Eosinophil# 0.25 X10^3/uL; Eosinophils% 3.8 % (0-5); Hematocrit 41.1 % (37-47); Hemoglobin 13.7 g/dL (12.0-15.0); Lymphocyte # 2.17 X10^3/ul (0.83-4.51); Lymphocyte % 32.8 % (19-41); Mean Corp Hgb Conc 33.3 g/dL (32-36); Mean Corpuscular Hgb 30.8 pg (27.0-32.0); Mean Corpuscular Volume 92.4 fL (81-99); Mean Platelet Vol. 9.6 fl (6.2-12.0); Monocyte# 0.44 X10^3/uL; Monocyte% 6.7 % (0-10); NRBC Flagged by Analyzer 0 % (0-5); Neutrophil # 3.67 X10^3/uL (2.7-7.7); Neutrophil % 55.4 % (47-70); Platelet Count 341 K/mm3 (150-450); RBC Distribution Width CV 14.2 % (11.6-14.6); RBC Distribution Width SD 48.1 fl (35.1-43.9); Red Blood Count 4.45 M/mm3 (4.2-5.4); White Blood Count 6.6 K/mm3 (4.4-11.0)
[2022-06-15 10:28] LABS: AST(SGOT) 25 U/L (15-37); Alanine Aminotransfer ALT/SGPT 32 U/L (13-56); Albumin, Serum 3.6 g/dL (3.2-5.0); Alkaline Phosphatase 85 U/L (45-117); Anion Gap 7 (5-15); BUN 18 mg/dL (7-18); BUN/Creat Ratio 15.5 RATIO (10-20); Calcium,Total 9.2 mg/dL (8.5-10.1); Chloride 105 mmol/L (98-107); Creatinine, Serum 1.16 mg/dL (0.55-1.02); EST Glomerular Filtration Rate 50 mL/min (>60); Est Glom Filt Rate - Afr Amer 60 mL/min (>60); Globulin 3.7 g/dL (2.2-4.2); Glucose 108 mg/dL (74-106); Potassium 3.9 mmol/L (3.5-5.1); Protein, Total 7.3 g/dL (6.4-8.2); Sodium Level 140 mmol/L (136-145)
== END | disposition home or self-care (01) ==
LOC: MTLAB 07:29
PROVIDERS: PCP Internal Medicine; Referring Provider Internal Medicine Rheumatology; Visit Provider Internal Medicine Rheumatology
DX: M06.4 Inflammatory polyarthropathy (principal); M15.9 Polyosteoarthritis, unspecified; M47.897 Other spondylosis, lumbosacral region; E03.9 Hypothyroidism, unspecified; E78.5 Hyperlipidemia, unspecified; Z79.899 Other long term (current) drug therapy
CPT/HCPCS: 36415; 80053; 85025

== ENCOUNTER → 2022-12-11 | Outpatient (CLI) | payer MEDICARE, SELFPAY ==
[2022-12-11 12:13] LABS: Absolute Neutrophil Count 3.4 X10^3/uL (2.0-7.7); Basophil# 0.04 X10^3/uL; Basophil% 0.7 % (0-1); Eosinophil# 0.18 X10^3/uL; Hematocrit 41.6 % (37-47); Hemoglobin 13.3 g/dL (12.0-15.0); Lymphocyte % 31.4 % (19-41); Mean Corpuscular Hgb 29.9 pg (27.0-32.0); Mean Corpuscular Volume 93.5 fL (81-99); Mean Platelet Vol. 9.6 fl (6.2-12.0); Monocyte# 0.53 X10^3/uL; Monocyte% 8.7 % (0-10); NRBC Flagged by Analyzer 0 % (0-5); Neutrophil # 3.39 X10^3/uL (2.7-7.7); Neutrophil % 55.9 % (47-70); Platelet Count 336 K/mm3 (150-450); RBC Distribution Width CV 13.7 % (11.6-14.6); RBC Distribution Width SD 46.9 fl (35.1-43.9); Red Blood Count 4.45 M/mm3 (4.2-5.4); White Blood Count 6.1 K/mm3 (4.4-11.0)
[2022-12-11 12:57] LABS: ALB/GLOB Ratio 0.9 RATIO (0.9-2.4); AST(SGOT) 21 U/L (15-37); Alanine Aminotransfer ALT/SGPT 24 U/L (13-56); Albumin, Serum 3.4 g/dL (3.2-5.0); Alkaline Phosphatase 82 U/L (45-117); Anion Gap 7 (5-15); BUN 14 mg/dL (7-18); BUN/Creat Ratio 12.2 RATIO (10-20); Calcium,Total 8.7 mg/dL (8.5-10.1); Chloride 106 mmol/L (98-107); Creatinine, Serum 1.15 mg/dL (0.55-1.02); EST Glomerular Filtration Rate 50 mL/min (>60); Est Glom Filt Rate - Afr Amer 61 mL/min (>60); Globulin 3.7 g/dL (2.2-4.2); Glucose 96 mg/dL (74-106); Protein, Total 7.1 g/dL (6.4-8.2); Sodium Level 139 mmol/L (136-145)
== END | disposition home or self-care (01) ==
PROVIDERS: PCP Internal Medicine; Referring Provider Internal Medicine Rheumatology; Visit Provider Internal Medicine Rheumatology
DX: M06.4 Inflammatory polyarthropathy (principal); M15.9 Polyosteoarthritis, unspecified; M47.897 Other spondylosis, lumbosacral region; E03.9 Hypothyroidism, unspecified; E78.5 Hyperlipidemia, unspecified; Z79.899 Other long term (current) drug therapy
CPT/HCPCS: 36415; 80053; 85025

== ENCOUNTER → 2023-03-02 | Outpatient (CLI) | payer MEDICARE, SELFPAY ==
[2023-03-02 17:58] LABS: Absolute Lymphocyte Count 1.95 X10^3/uL (0.83-4.51); Absolute Neutrophil Count 4.1 X10^3/uL (2.0-7.7); Basophil# 0.04 X10^3/uL; Basophil% 0.6 % (0-1); Eosinophil# 0.19 X10^3/uL; Eosinophils% 2.7 % (0-5); Hematocrit 43.7 % (37-47); Hemoglobin 13.7 g/dL (12.0-15.0); Lymphocyte # 1.95 X10^3/ul (0.83-4.51); Lymphocyte % 27.7 % (19-41); Mean Corp Hgb Conc 31.4 g/dL (32-36); Mean Corpuscular Hgb 30.2 pg (27.0-32.0); Mean Corpuscular Volume 96.5 fL (81-99); Mean Platelet Vol. 9.9 fl (6.2-12.0); Monocyte# 0.71 X10^3/uL; Monocyte% 10.1 % (0-10); NRBC Flagged by Analyzer 0 % (0-5); Neutrophil # 4.11 X10^3/uL (2.7-7.7); Neutrophil % 58.5 % (47-70); Platelet Count 346 K/mm3 (150-450); RBC Distribution Width CV 13.5 % (11.6-14.6); RBC Distribution Width SD 47.8 fl (35.1-43.9); Red Blood Count 4.53 M/mm3 (4.2-5.4)
[2023-03-02 18:30] LABS: AST(SGOT) 25 U/L (15-37); Alanine Aminotransfer ALT/SGPT 26 U/L (13-56); Albumin, Serum 3.6 g/dL (3.2-5.0); Alkaline Phosphatase 100 U/L (45-117); Anion Gap 4 (5-15); BUN 13 mg/dL (7-18); BUN/Creat Ratio 11.2 RATIO (10-20); Calcium,Total 8.9 mg/dL (8.5-10.1); Chloride 107 mmol/L (98-107); Creatinine, Serum 1.16 mg/dL (0.55-1.02); EST Glomerular Filtration Rate 50 mL/min (>60); Est Glom Filt Rate - Afr Amer 60 mL/min (>60); Globulin 3.5 g/dL (2.2-4.2); Glucose 94 mg/dL (74-106); Potassium 3.8 mmol/L (3.5-5.1); Protein, Total 7.1 g/dL (6.4-8.2); Sodium Level 139 mmol/L (136-145)
== END | disposition home or self-care (01) ==
LOC: MTLAB 16:18
PROVIDERS: PCP Internal Medicine; Referring Provider Internal Medicine Rheumatology; Visit Provider Internal Medicine Rheumatology
DX: M06.00 Rheumatoid arthritis without rheumatoid factor, unspecified site (principal); Z79.899 Other long term (current) drug therapy
CPT/HCPCS: 36415; 80053; 85025

== ENCOUNTER → 2023-03-13 | Outpatient (CLI) | payer MEDICARE, SELFPAY ==
--- NOTE | 2023-03-13 11:41 | US_ITS ---
STUDY: THYROID ULTRASOUND REASON FOR EXAM: Female, 67 years old. NODULE TECHNIQUE: Ultrasound evaluation of the thyroid was performed with real-time and static sharma-scale imaging. COMPARISON: March 03, 2022 ultrasound thyroid FINDINGS: RIGHT LOBE: The right lobe of the thyroid gland measures 4.5 x 1.4 x 2.2 cm. There is a mildly inhomogeneous. There is a benign well circumscribed wider than tall cystic structure with well-circumscribed borders measuring 4.6 x 3.0 x 3.7 mm. Stable since prior study There is a spongiform mixed echogenicity mostly solid partially vascular wider than tall nodule right thyroid measuring 1.2 x 1.0 x 0.7 cm. This is stable since prior study. LEFT LOBE: The left lobe of the thyroid gland measures 3.6 x 1.4 x 2.2 cm. There is a minimal inhomogeneity. Within the left thyroid there is a 2.8 x 2.7 x 2.4 hypoechoic mass with partial calcification which may represent an involuting cyst that was seen on the prior study measuring 5.2 x 6.2 x 5.2 mm. There is a small hypoechoic wider than tall nodule measuring 2.8 x 2.0 x 3.6 mm. Not definitively seen on the prior study ISTHMUS: The isthmus measures 1.9 mm . The regional lymph nodes are normal. US/Thyroid IMPRESSION: Benign cystic T1 structure right thyroid measuring 4.6 x 3.0 x 3.7 mm. Stable nodule right thyroid measuring 1.2 x 1.0 x 0.7 cm. Involuting cystic structure left thyroid with peripheral calcification. There is a isoechoic nodule described on the prior study it is not as well-visualized on today''s study. Given the presence of likely benign but interval change in the left thyroid, recommend consideration for follow-up ultrasound in 12 months. Electronically Signed: Zonia Rees MD at 10:24 EDT ,
--- NOTE | 2023-03-13 11:41 | BI_ITS ---
MAMMOGRAPHY - BILATERAL SCREENING REASON FOR EXAM: Female, 67 years old. Routine annual screening examination. PERTINENT HISTORY: Sister with breast cancer. TECHNIQUE: Digital bilateral breast aaron (3D mammographic acquisition) in the CC and MLO projections. 2-D mediolateral oblique (MLO) and craniocaudad (CC) views of both breasts were obtained. CAD: Full Field Digital Mammography with Computer Added Detection was performed. COMPARISON: Comparison is made with prior study February 01, 2022 and January 06, 2021. FINDINGS: Breast Composition: There are scattered areas of fibroglandular density. There are no dominant masses or suspicious calcifications. Stable asymmetry of breast tissue in the breast tissue is seen in the upper outer aspect of the left breast as compared to the right side. There is a 6.7 mm x 6 mm well-defined nodule in the deep upper medial aspect of the right breast. Correlation with ultrasound is recommended. No other significant abnormalities are identified. BI/SCRN MAMM (CAD)W/AARON BILAT IMPRESSION: 6.7 mm x 6 mm well-defined nodule in the deep upper medial aspect of the right breast. Correlation with ultrasound is recommended. ASSESSMENT CATEGORY: BIRADS Category 0: Incomplete. Need additional imaging evaluation. A letter regarding these results will be sent to the patient by the facility within 30 days. Approximately 10% of breast cancers are not detected by mammography. A normal mammogram should not delay biopsy of a clinically suspicious abnormality. [id number] Electronically Signed: Mandeep Morelos MD at 13:24 EDT ,
== END | disposition home or self-care (01) ==
LOC: OPUS 11:39
PROVIDERS: PCP Internal Medicine; Referring Provider Internal Medicine; Visit Provider Internal Medicine
DX: Z12.31 Encounter for screening mammogram for malignant neoplasm of breast (principal); E04.1 Nontoxic single thyroid nodule
CPT/HCPCS: 76536; 77063; 77067

== ENCOUNTER → 2023-03-16 | Outpatient (CLI) | payer MEDICARE, SELFPAY ==
--- NOTE | 2023-03-16 08:28 | US_ITS ---
STUDY: ULTRASOUND BREAST - RIGHT REASON FOR EXAM: Female, 67 years old. Abnormal screening mammogram. TECHNIQUE: Axial and longitudinal images of the RIGHT breast were performed with a high resolution ultrasound transducer. # OF IMAGES: 11 COMPARISON: Comparison is made with prior mammogram dated March 13, 2023. FINDINGS: RIGHT Breast: There is a 6 mm x 9 mm x 4 mm cyst at the 1:00 position of the breast at the 8 cm from the nipple. US/Breast Limited Unilateral IMPRESSION: The mammographic abnormality corresponds to a 6 mm x 9 mm x 4 mm cyst at the 1:00 position of the breast at 8 cm from the nipple. ASSESSMENT CATEGORY: BIRADS Category 2: Benign. A letter regarding these results will be sent to the patient by the facility within 30 days. Electronically Signed: Mandeep Morelos MD at 9:10 EDT ,
== END | disposition home or self-care (01) ==
LOC: OPUS 08:26
PROVIDERS: PCP Internal Medicine; Referring Provider Internal Medicine; Visit Provider Internal Medicine
DX: R92.0 Mammographic microcalcification found on diagnostic imaging of breast (principal)
CPT/HCPCS: 76642

== ENCOUNTER → 2023-05-22 | Outpatient (CLI) | payer MEDICARE, SELFPAY ==
[2023-05-22 10:29] LABS: Absolute Lymphocyte Count 1.65 X10^3/uL (0.83-4.51); Absolute Neutrophil Count 3.2 X10^3/uL (2.0-7.7); Basophil# 0.04 X10^3/uL; Basophil% 0.7 % (0-1); Eosinophil# 0.17 X10^3/uL; Eosinophils% 3.1 % (0-5); Hematocrit 40.2 % (37-47); Hemoglobin 13.1 g/dL (12.0-15.0); Lymphocyte # 1.65 X10^3/ul (0.83-4.51); Mean Corp Hgb Conc 32.6 g/dL (32-36); Mean Corpuscular Hgb 30.8 pg (27.0-32.0); Mean Corpuscular Volume 94.4 fL (81-99); Mean Platelet Vol. 9.7 fl (6.2-12.0); Monocyte# 0.44 X10^3/uL; NRBC Flagged by Analyzer 0 % (0-5); Neutrophil # 3.19 X10^3/uL (2.7-7.7); Platelet Count 290 K/mm3 (150-450); RBC Distribution Width CV 13.7 % (11.6-14.6); RBC Distribution Width SD 47.2 fl (35.1-43.9); Red Blood Count 4.26 M/mm3 (4.2-5.4); White Blood Count 5.5 K/mm3 (4.4-11.0)
[2023-05-22 10:52] LABS: ALB/GLOB Ratio 0.8 RATIO (0.9-2.4); AST(SGOT) 20 U/L (15-37); Alanine Aminotransfer ALT/SGPT 24 U/L (13-56); Albumin, Serum 3.3 g/dL (3.2-5.0); Alkaline Phosphatase 86 U/L (45-117); Anion Gap 8 (5-15); BUN 16 mg/dL (7-18); BUN/Creat Ratio 13.4 RATIO (10-20); Chloride 107 mmol/L (98-107); Creatinine, Serum 1.19 mg/dL (0.55-1.02); EST Glomerular Filtration Rate 48 mL/min (>60); Est Glom Filt Rate - Afr Amer 58 mL/min (>60); Globulin 3.9 g/dL (2.2-4.2); Glucose 112 mg/dL (74-106); Potassium 4.1 mmol/L (3.5-5.1); Protein, Total 7.2 g/dL (6.4-8.2); Sodium Level 140 mmol/L (136-145)
== END | disposition home or self-care (01) ==
LOC: MTLAB 08:18
PROVIDERS: PCP Internal Medicine; Referring Provider Internal Medicine Rheumatology; Visit Provider Internal Medicine Rheumatology
DX: M06.00 Rheumatoid arthritis without rheumatoid factor, unspecified site (principal); Z79.899 Other long term (current) drug therapy
CPT/HCPCS: 36415; 80053; 85025

== ENCOUNTER → 2023-11-15 | Outpatient (CLI) | payer MEDICARE, SELFPAY ==
--- OUTSIDE RECORDS SUMMARY | 2023-11-15 13:23 | XMS RPT_ITS | CCD ---
Author Name Unknown Address [address] [place] [address] Organization [facility] Care Team Providers Care Client Manager Large Law Name Role Phone Indigo Whipple Unavailable Alphonso Colindres Unavailable Unavailable Unavailable Unavailable Kimberly Marcano Unavailable Unavailable Gravius, Olga Unavailable Unavailable Slarb, Monica Unavailable Unavailable Cassandra Muro Unavailable Unavailable Unavailable Unavailable Lesli Tello Unavailable Unavailable Indigo Whipple DO Unavailable Kimberly Marcano RN Unavailable Unavailable GravOlga chadwick CMA Unavailable Unavailable Lesli Tello LPN Unavailable Unavailable Slarb HEATER HELPER, Monica Unavailable Unavailable Cassandra Muro RN Unavailable Unavailable Unavailable Unavailable Indigo Whipple DO Unavailable Trina Mcgrath MA Unavailable Unavailable [facility] PASTE UP ARTIST APPRENTICE, Kayela Unavailable Unavailable Manthomask SHILA, Gabriella Unavailable Unavailable Sarabjit DO, Indigo Attending Unavailable SarabjitIndigo cintron DO Consulting Unavailable Marcelle Artis MA Unavailable Unavailable Allergies Allergy Classification Reported Allergen(s) Allergy Type Date of Onset Reaction(s) Facility (12 sources) Sulfonamides (Antibiotic); Translations: [Sulfa Drugs] allergy to substance [facility] Work Phone: Medications Completed/Discontinued Medications Medication Drug Class(es) Dates Sig (Normalized) Sig (Original) amoxicillin 875 mg oral tablet (12 sources) Penicillin-class Antibacterial Start: 08-23-2009 End: 09-22-2009 take 1 tablet by mouth twice daily AMOXIL, 875MG (Oral Tablet) 1 (one) Tablet Twice daily for 0 days Quantity: 20 {Tablet} Refills: 0 Ordered: 23-Aug-2009 Kimberly Marcano RN Start : 23-Aug-2009 End : 22-Sep-2009 Inactive amoxicillin 875 mg / clavulanate 125 mg oral tablet (20 sources) Penicillin-class Antibacterial Start: 01-26-2020 End: 02-23-2022 take 1 tablet by mouth twice daily Amoxicillin-Pot Clavulanate 875-125 MG Oral Tablet 1 (one) Tablet bid for 0 days Quantity: 20 {Tablet} Refills: 0 Ordered: 23-Feb-2022 Sarabjit WRIGHT Indigo Sarabjit WRIGHT Indigo Start : 26-Jan-2020 End : 23-Feb-2022 Inactive Problems Active Problems Problem Classification Problem Date Documented Da te Episodic/Chronic Abdominal pain (20 sources) Acute abdominal pain; Translations: [Left upper quadrant pain] Resolved: 10-21-2012 09-20-2015 Episodic Past or Other Problems Problem Classification Problem Date Documented Da te Episodic/Chronic Acute bronchitis (12 sources) Acute bronchitis; Translations: [Acute bronchitis] Resolved: 03-02-2010 10-21-2012 Episodic Diabetes mellitus without complication (4 sources) Diabetes mellitus without complication Headache; including migraine (12 sources) Headache; Translations: [Headache] Resolved: 03-02-2010 08-10-2015 Episodic Hemorrhoids (12 sources) Hemorrhoids; Translations: [Hemorrhoids] Resolved: 03-02-2010 08-17-2015 Episodic Unclassified (20 sources) SYMPTOMS INVOLVING URINARY SYSTEM, DYSURIA (788.1) Unclassified (9 sources) Abdominal Pain,RUQ(789.01) Unclassified (12 sources) D&C 11-20-2018 Unclassified (12 sources) Deliveries (Parity); Translations: [Deliveries (Parity)] 11-20-2018 Results Test Name Value Interpretation Reference Range Facil ity Vital Signs Date Time Vital Sign Value Performing Clinician Facility 03-19-2023 10:18-040 Body height 166.37 cm Marcelle Artis MA [facility]; [facility] Work Phone: 03-19-2023 10:18-0400 Body mass index (BMI) [Ratio] 41.13 kg/m2 Marcelle Artis MA [facility]; [facility] Work Phone: 03-19-2023 10:18-0400 Body surface area Derived from formula 2.19 m2 Marcelle Artis MA [facility]; [facility] Work Phone: 03-19-2023 10:180400 Body weight 113.85 kg Marcelle Artis MA [facility]; [facility] Work Phone: 02-26-2023 11:26040 Body height 166.37 cm Gabriella Hernandez [facility] Comprehens[facility] e [facility]; [facility] Work Phone: 02-26-2023 11:[id number] Body mass index (BMI) [Ratio] 41.13 kg/m2 Gabriella Hernandez [facility]; [facility] Work Phone: 02-26-2023 11:040 Body surface area Derived from formula 2.19 m2 Gabriella Hernandez [facility]; [facility] Work Phone: 02-26-2023 11:040 Body temperature 96.6 [degF] Gabriella Hernandez [facility] Comprehensi ve Internal Medicine; [facility] Work Phone: Encounters Encounter Date Encounter Type Care Provider Facility Start: 03-19-2023 End: 03-19-2023 Office outpatient visit 15 minutes Indigo Sarabjit DO Work Phone: [facility] Start: 02-26-2023 ambulatory Indigo Sarabjit DO [facility] Start: 02-26-2023 End: 02-26-2023 Office outpatient visit 25 minutes Indigo Sarabjit DO Work Phone: [facility] Start: 03-16-2022 End: 03-16-2022 Office outpatient visit 15 minutes Indigo Sarabjit DO Work Phone: [facility] Start: 02-28-2022 End: 02-28-2022 Annotation/Addendum Indigo Sarabjit DO Work Phone: [facility] Start: 02-23-2022 End: 02-23-2022 Office outpatient visit 15 minutes Indigo Sarabjit DO Work Phone: [facility] Start: 01-23-2022 End: 01-23-2022 Office outpatient visit 25 minutes Indigo Sarabjit DO Work Phone: [facility] Start: 01-23-2022 End: 01-23-2022 Patient encounter procedure Indigo Whipple DO Work Phone: [facility] Start: 01-03-2021 End: 01-03-2021 Annotation/Addendum Indigo Whipple [facility] Start: 02-06-2020 End: 02-06-2020 Phone Encounter Indigo Whipple [facility] Start: 02-03-2020 End: 02-03-2020 Annotation/Addendum Indigo Whipple [facility] Start: 01-26-2020 End: 01-26-2020 Office outpatient visit 15 minutes Indigo Whipple [facility] Start: 12-02-2019 End: 12-02-2019 Phone Encounter Indigo Whipple [facility] Start: 12-01-2019 End: 12-01-2019 Phone Encounter Indigo Whipple [facility] Start: 11-19-2019 End: 11-19-2019 Phone Encounter Indigo Whipple [facility] Start: 11-19-2019 End: 11-19-2019 Office outpatient visit 25 minutes Indigo Whipple [facility] Start: 11-10-2019 End: 11-10-2019 Annotation/Addendum Indigo Whipple [facility] Start: 11-20-2018 End: 11-20-2018 Office outpatient visit 15 minutes Indigo Whipple [facility] Start: 03-06-2018 End: 03-06-2018 Office outpatient visit 25 minutes Indigo Whipple [facility] Start: 12-06-2016 End: 12-06-2016 Office outpatient visit 25 minutes Indigo Sarabjit [facility] Start: 11-15-2015 End: 11-15-2015 Office outpatient visit 15 minutes Indigo Whipple [facility] Start: 10-22-2013 End: 10-22-2013 Patient encounter procedure Indigo Whipple [facility] Start: 10-21-2012 End: 10-21-2012 Patient encounter procedure Air Quality Consultant [facility] Start: 10-18-2011 End: 10-18-2011 Patient encounter procedure Indigo Whipple [facility] Start: 10-09-2011 End: 10-09-2011 Phone Encounter Indigo Sarabjit [facility] Start: 10-02-2011 End: 10-02-2011 Office outpatient visit 25 minutes Indigo Sarabjit [facility] Start: 04-25-2011 End: 04-25-2011 Patient encounter procedure Indigo Greenesaida [facility] Start: 09-07-2010 End: 09-07-2010 Patient encounter procedure Indigo Greenesaida [facility] Start: 07-01-2010 End: 07-01-2010 Phone Encounter Indigo Sarabjitsaida [facility] Start: 04-20-2010 End: 04-20-2010 Patient encounter procedure Indigo Sarabjit [facility] Start: 03-14-2010 End: 03-14-2010 Phone Encounter Indigoskip Whipple [facility] Start: 03-02-2010 End: 03-02-2010 Patient encounter procedure Indigo Sarabjit [facility] Start: 01-21-2010 End: 01-21-2010 Patient encounter procedure Indigo Sarabjit [facility] Start: 09-22-2009 End: 09-22-2009 Patient encounter procedure Indigo Whipple [facility] Start: 08-23-2009 End: 08-23-2009 Patient encounter procedure Indigo Sarabjit [facility] Start: 07-07-2009 End: 07-07-2009 Historical Summary Indigo Sarabjitsaida [facility] Start: 07-01-2009 End: 07-01-2009 Office outpatient visit 15 minutes Indigo Whipple [facility] Start: 01-01-2009 End: 01-01-2009 Patient encounter procedure Indigo Sarabjit [facility] Start: 12-25-2008 End: 12-25-2008 Patient encounter procedure Indigo Sarabjit [facility] Start: 12-23-2008 End: 12-23-2008 Patient encounter procedure Indigo Sarabjit [facility] Start: 08-07-2008 End: 08-07-2008 Patient encounter procedure Indigo Whipple [facility] Start: 05-14-2008 End: 05-14-2008 Annotation/Addendum Indigo Whipple [facility] Start: 05-11-2008 End: 05-11-2008 Office outpatient visit 25 minutes Indigo [facility] Start: 04-08-2008 End: 04-08-2008 Office outpatient visit 15 minutes Indigo Whipple [facility] Start: 02-13-2008 End: 02-13-2008 Phone Encounter Indigo Whipple [facility] Start: 11-01-2007 End: 11-01-2007 Patient encounter procedure Indigo Whipple [facility] Start: 09-06-2007 End: 09-06-2007 Phone Encounter Indigo Whipple [facility] Start: 08-08-2007 End: 08-08-2007 Phone Encounter Indigo Whipple [facility] Start: 07-30-2007 End: 07-30-2007 Office outpatient visit 25 minutes Indigo Whipple [facility] Start: 06-03-2007 End: 06-03-2007 Patient encounter procedure Indigo Whipple [facility] Start: 05-31-2007 End: 05-31-2007 Historical Summary Indigo Whipple [facility] Start: 12-28-2006 End: 12-28-2006 Refill Request Indigo Whipple [facility] Start: 09-21-2006 End: 09-21-2006 Patient encounter procedure Indiog Whipple [facility] Patient encounter procedure Olga Ashton [facility] Work Phone: Patient encounter procedure Trina Mcgrath [facility] Work Phone: Patient encounter procedure Brinda Wiley [facility] Work Phone: Patient encounter procedure Marcelle Artis [facility] Work Phone: Procedures Date Procedure Procedure Detail Performing Clinician Start: 03-16-2023 End: 03-16-2023 Breast Limited Unilateral Procedure Note: See Note; NOTES: [facility] Imaging Services [address] [place] [address] Breast Limited Unilateral MR#: [id number] Acct: [id number] Name: LINDA WILSON Rep #: [id number] : 1955 F 67 From: Mandeep juarez MD PCP: Dr. Indigo Whipple DO Status: REG CLI Study: Breast Limited Unilateral Date of Exam: Exam# [id number] Ordering Dr: Indigo Whipple DO STUDY: ULTRASOUND BREAST - RIGHT REASON FOR EXAM: Female, 67 years old. Abnormal screening mammogram. TECHNIQUE: Axial and longitudinal images of the RIGHT breast were performed with a high resolution ultrasound transducer. # OF IMAGES: 11 COMPARISON: Comparison is made with prior mammogram dated March 13, 2023. FINDINGS: RIGHT Breast: There is a 6 mm x 9 mm x 4 mm cyst at the 1:00 position of the breast at the 8 cm from the nipple. US/Breast Limited Unilateral IMPRESSION: The mammographic abnormality corresponds to a 6 mm x 9 mm x 4 mm cyst at the 1:00 position of the breast at 8 cm from the nipple. ASSESSMENT CATEGORY: BIRADS Category 2: Benign. A letter regarding these results will be sent to the patient by the facility within 30 days. Electronically Signed: Mandeep Morelos MD at 9:10 EDT Reading Location ID and State: [facility] / [place] , Service support , CC: Dr. Indigo Whipple DO Drug Inspector: Signed Indigo Whipple DO Work Phone: Start: 03-13-2023 End: 03-13-2023 SCRN MAMM (CAD)W/AARON BILAT Procedure Note: See Note; NOTES: [facility] Imaging Services [address] [place] [address] SCRN MAMM (CAD)W/AARON BILAT MR#: [id number] Acct: [id number] Name: LINDA WILSON Rep #: [id number] : 1955 F 67 From: Mandeep juarez MD PCP: Dr. Indigo Whipple DO Status: REG CLI Study: SCRN MAMM (CAD)W/AARON BILAT Date of Exam: 07/28 Exam# [id number] Ordering Dr: Indigo Whipple DO MAMMOGRAPHY - BILATERAL SCREENING REASON FOR EXAM: Female, 67 years old. Routine annual screening examination. PERTINENT HISTORY: Sister with breast cancer. TECHNIQUE: Digital bilateral breast aaron (3D mammographic acquisition) in the CC and MLO projections. 2-D mediolateral oblique (MLO) and craniocaudad (CC) views of both breasts were obtained. CAD: Full Field Digital Mammography with Computer Added Detection was performed. COMPARISON: Comparison is made with prior study February 01, 2022 and January 06, 2021. FINDINGS: Breast Composition: There are scattered areas of fibroglandular density. There are no dominant masses or suspicious calcifications. Stable asymmetry of breast tissue in the breast tissue is seen in the upper outer aspect of the left breast as compared to the right side. There is a 6.7 mm x 6 mm well-defined nodule in the deep upper medial aspect of the right breast. Correlation with ultrasound is recommended. No other significant abnormalities are identified. BI/SCRN MAMM (CAD)W/AARON BILAT IMPRESSION: 6.7 mm x 6 mm well-defined nodule in the deep upper medial aspect of the right breast. Correlation with ultrasound is recommended. ASSESSMENT CATEGORY: BIRADS Category 0: Incomplete. Need additional imaging evaluation. A letter regarding these results will be sent to the patient by the facility within 30 days. Approximately 10% of breast cancers are not detected by mammography. A normal mammogram should not delay biopsy of a clinically suspicious abnormality. [id number] Electronically Signed: Mandeep Morelos MD at 13:24 EDT , CC: Dr. Indigo Whipple DO Drug Inspector: Signed Indigo Whipple DO Work Phone: Start: 03-13-2023 End: 03-14-2023 Thyroid Procedure Note: See Note; NOTES: [facility] Imaging Services [address] [place] [address] Thyroid MR#: [id number] Acct: [id number] Name: LINDA WILSON Rep #: [id number] : 1955 F 67 From: Zonia Rees MD PCP: Dr. Indigo Whipple DO Status: REG CLI Study: Thyroid Date of Exam: 03/13/23 Exam# [id number] Ordering Dr: Indigo Whipple DO STUDY: THYROID ULTRASOUND REASON FOR EXAM: Female, 67 years old. NODULE TECHNIQUE: Ultrasound evaluation of the thyroid was performed with real-time and static sharma-scale imaging. COMPARISON: March 03, 2022 ultrasound thyroid FINDINGS: RIGHT LOBE: The right lobe of the thyroid gland measures 4.5 x 1.4 x 2.2 cm. There is a mildly inhomogeneous. There is a benign well circumscribed wider than tall cystic structure with well-circumscribed borders measuring 4.6 x 3.0 x 3.7 mm. Stable since prior study There is a spongiform mixed echogenicity mostly solid partially vascular wider than tall nodule right thyroid measuring 1.2 x 1.0 x 0.7 cm. This is stable since prior study. LEFT LOBE: The left lobe of the thyroid gland measures 3.6 x 1.4 x 2.2 cm. There is a minimal inhomogeneity. Within the left thyroid there is a 2.8 x 2.7 x 2.4 hypoechoic mass with partial calcification which may represent an involuting cyst that was seen on the prior study measuring 5.2 x 6.2 x 5.2 mm. There is a small hypoechoic wider than tall nodule measuring 2.8 x 2.0 x 3.6 mm. Not definitively seen on the prior study ISTHMUS: The isthmus measures 1.9 mm . The regional lymph nodes are normal. US/Thyroid IMPRESSION: Benign cystic T1 structure right thyroid measuring 4.6 x 3.0 x 3.7 mm. Stable nodule right thyroid measuring 1.2 x 1.0 x 0.7 cm. Involuting cystic structure left thyroid with peripheral calcification. There is a isoechoic nodule described on the prior study it is not as well-visualized on today''s study. Given the presence of likely benign but interval change in the left thyroid, recommend consideration for follow-up ultrasound in 12 months. Electronically Signed: Zonia Rees MD at 10:24 EDT Reading Location ID and State: [facility] / [place] Tel , Service support , CC: Dr. Indigo Whipple DO Drug Inspector: Signed Indigo Whipple DO Work Phone: Start: 09-27-2022 End: 09-27-2022 Urgent Care Visit Report Procedure Note: See Note; NOTES: [facility] [address] [place] [address] OFFICE VISIT Date of Service: 09/27/22 MR#: [id number] Acct: [id number] Name: LINDA WILSON Rep #: [id number] : 1955 Provider: RAHDA Morales Age/Sex: 66/F Location: [facility] Status: Signed Intake Vital Signs 02/01/22 10:19 09/27/22 08:11 Height 5 ft 3 in BP 148/84 H Blood Pressure Location Lt brachial Position Sitting Respiration 14 Pulse 98 Pulse Source Monitor Temp 97.5 F L Temp Source Temporal Pulse Oximetry (%) 98 Oxygen Delivery Method room air Intake Visit Reasons: CONCERN FOR UTI Chief Complaint: Increased urinary frequency Allergies Sulfa (Sulfonamide Antibiotics) Allergy (Verified 04/27/21 08:22) Swelling [facility] Medical History (Updated 09/27/22 @ 09:23 by HoldenRADHA Bonilla) Acute lumbar myofascial strain Arthritis Basal cell carcinoma Lumbar radiculopathy Thyroid disease Surgical History H/O thumb surgery H/O: hysterectomy History of carpal tunnel release History of tonsillectomy Hx of appendectomy Family History Other Diabetes Heart disease Social History Smoking Status: Never smoker HPI HPI Chief Complaint: Increased urinary frequency Details: LINDA WILSON, is a 66 F who presents to the office today for complaint of increased urinary frequency and urgency for the past several days. Patient denies dysuria, hematuria or loss of bl adder control. No fever, chills, sweats. No nausea, vomiting, diarrhea. No pelvic or abdominal pain. No other associated symptoms or alleviating/aggravating factors. ROS Const Constitutional: No other (As above) Exam Const General: cooperative and healthy appearing Resp Effort Inspection: normal respiratory effort Auscultation: Bilateral: Clear to Auscultation Cardio Rate: regular rate Rhythm: regular rhythm GI Auscultation: normal bowel sounds General: No CVA tenderness Psych Appearance: grossly normal Mental Status: mental status grossly normal Coding Level of Care Code Off vis,est,level 3 Diagnoses Increased urinary frequency R35.0 Assessment and Plan Assessment and Plan (1) Increased urinary frequency: Status: Acute Plan: Macrobid as prescribed today. Encouraged to get plenty of rest, drink lots of clear liquids, and use Tylenol or Ibuprofen (unless contraindicated) for fever and comfort. Patient also educated on other symptomatic management techniques. To be seen in 7-10 days if no improvement; sooner if worsening of symptoms. Patient advised of potential red flags and when appropriate to report to the ED. Patient verbalized understanding and agreement with all the above. Medications: New nitrofurantoin monohyd/m-cryst 100 mg administer with a meal/food; swallow whole; do not open, crush, dissolve , or chew 1 cap PO Q12H 14 caps 0RF 7 days 09/27/22 0925 <Electronically signed by Holden GARCIA> Date Holden Armstrong Signature: Date (if applicable) CC: Indigo Whipple DO Work Phone: Start: 03-03-2022 End: 03-03-2022 Thyroid Comments: See Note; NOTES: [facility] Imaging Services [address] [place] [address] Thyroid MR#: [id number] Acct: [id number] Name: LINDA WILSON Rep #: [id number] : 1955 F 66 From: Yannick Abraham PCP: Dr. Indigo Whipple DO Status: REG CLI Study: Thyroid Date of Exam: 03/03/22 Exam# [id number] Ordering Dr: Indigo Whipple DO STUDY: THYROID ULTRASOUND REASON FOR EXAM: Female, 66 years old. HYPERPARATHYROIDISM TECHNIQUE: Ultrasound evaluation of the thyroid was performed with real-time and static sharma-scale imaging. COMPARISON: None. FINDINGS: RIGHT LOBE: The right lobe of the thyroid gland measures 4.4 x 1.8 cm. There is a homogeneous echotexture. There are nodules. Largest nodule is in the lower pole measuring 12 x 7 mm. The lesion is solid with regular margins and intra-nodular doppler flow. 2nd nodule is 7.6 x 7.1mm. LEFT LOBE: The left lobe of the thyroid gland measures 3.7 x 1.2 cm. There is a homogeneous echotexture. There are 2 nodules. Calcified nodule measures 3 x 3 x 2 mm. Cystic nodule measures 6 x 5 mm.The lesion is cystic with regular margins and intra-nodular doppler flow. ISTHMUS: The isthmus measures 1.9 mm. US/Thyroid IMPRESSION: There are RIGHT nodules. This nodule is solid or almost completely solid, hyperechoic or isoechoic, [id number], smoothly marginated and contains no echogenic foci. TI-RADS points: 3. TI-RADS category: TR3. This nodule is mildly suspicious but no FNA or follow-up is necessary given the small size of this nodule. The calcified 3mm left nodules. This nodule is of uncertain composition due to calcification, is of indeterminate echogenicity, rbqzc-[id number], margins cannot be determined, contains microcalcifications and is peripherally calcified. TI-RADS points: 6. TI-RADS category: TR4. This nodule is moderately suspicious but no FNA or follow-up is necessary given the small size of this nodule. Electronically Signed: Yannick Mendosa MD at 19:15 EDT Reading Location ID and State: [facility] / [place] , Service support , CC: Dr. Indigo Whipple DO Drug Inspector: Signed Indigo Whipple DO Work Phone: Start: 02-01-2022 End: 02-02-2022 Dexa Bone Density Study Comments: See Note; NOTES: [facility] Imaging Services [address] [place] [address] Dexa Bone Density Study MR#: [id number] Acct: [id number] Name: LINDA WILSON Rep #: [id number] : 1955 F 66 From: Mandeep juarez MD PCP: Dr. Indigo Whipple DO Status: [facility] Study: Dexa Bone Density Study Date of Exam: 02/01/22 Exam# [id number] Ordering Dr: Indigo Whipple DO STUDY: DUAL ENERGY X-RAY ABSORPTIOMETRY / DXA REASON FOR EXAM: Female, 66 years old. [id number]. The patient is postmenopausal. TECHNIQUE: Bone Mineral Density (BMD) measurements of lumbar spine and bilateral hips were obtained. COMPARISON: None. FINDINGS: Lumbar Spine (L1-L4): g/cm2 (1.203) / T-score (1.4) / Z-score (3.2) Findings are suggestive of normal bone density with a low fracture risk. Left Femur Total: g/cm2 (0.767) / T-score (-1.4) / Z-score (-0.2) Left Femoral Neck: g/cm2 (0.5-0) / T-score (-3.0) / Z-score (-1.4) Right Femur Total: g/cm2 (0.803) / T-score (-1.1) / Z-score (0.1) Right Femoral Neck: g/cm2 (0.590) / T-score (-2.3) / Z-score (0.8) BD/Dexa Bone Density Study IMPRESSION: The patient is considered osteoporotic as outlined below according to World Leroy Organization (WHO) criteria with a high fracture risk. Reference Information: The T-score is the number of standard deviations above or below the standard which is normal for young adults at their peak bone mineral density. The World Health Organization (WHO) interprets the T-scores as follows: Above -1 Normal bone density Between -1 and -2.5 Osteopenia Equal to / or below -2.5 Osteoporosis As a practical clinical guideline, osteopenia may be graded as follows: Mild -1 through -1.5 Moderate -1.6 through -2.0 Severe -2.1 through -2.4 The Z-score is the number of standard deviations above or below age-matched controls. A Z-score of less than -1.5 would be considered abnormal. References: 1. NIH Osteoporosis and Related Bone Diseases www osteo.org 2. International Society for Clinical Densitometry www iscd.org 3. National Osteoporosis Foundation www nof.org Electronically Signed: Mandeep Morelos MD at 10:36 EDT , CC: Dr. Indigo Whipple DO Drug Inspector: Signed Indigo Whipple DO Work Phone: Start: 02-01-2022 End: 02-01-2022 SCRN MAMM (CAD)W/AARON BILAT Comments: See Note; NOTES: [facility] Imaging Services [address] [place] [address] SCRN MAMM (CAD)W/AARON BILAT MR#: [id number] Acct: [id number] Name: LINDA WILSON Rep #: [id number] : 1955 F 66 From: Mandeep juarez MD PCP: Dr. Indigo Whipple DO Status: REG CLI Study: SCRN MAMM (CAD)W/AARON BILAT Date of Exam: 01/05 Exam# [id number] Ordering Dr: Indigo Whipple DO MAMMOGRAPHY - BILATERAL SCREENING REASON FOR EXAM: Female, 66 years old. Routine annual screening examination. PERTINENT HISTORY: Sister with breast cancer. TECHNIQUE: Digital bilateral breast aaron (3D mammographic acquisition) in the CC and MLO projections. 2-D mediolateral oblique (MLO) and craniocaudad (CC) views of both breasts were obtained. CAD: Full Field Digital Mammography with Computer Added Detection was performed. COMPARISON: Comparison is made with prior examination dated 01/06/2021. FINDINGS: Breast Composition: There are scattered areas of fibroglandular density. There are no dominant masses or suspicious calcifications. Stable small benign-appearing bilateral axillary lymph nodes. No other significant abnormalities are identified. There has been no significant change since the prior study. BI/SCRN MAMM (CAD)W/AARON BILAT IMPRESSION: Stable bilateral screening mammogram. Yearly follow-up mammogram recommended. (A) ASSESSMENT CATEGORY: BIRADS Category 2: Benign. A letter regarding these results will be sent to the patient by the facility within 30 days. Approximately 10% of breast cancers are not detected by mammography. A normal mammogram should not delay biopsy of a clinically suspicious abnormality. [id number] Electronically Signed: Mandeep Morelos MD at 12:16 EDT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 small cervix, left lower quadrant pelvic mass suspicious for appearance of fibroid that appeared to be retroperitoneal on first examination. DESCRIPTION OF PROCEDURE: The patient was brought to the operating room where general anesthesia was found to be adequate. She was prepped and draped in normal sterile fashion. The legs were placed in stirrups. A weighted speculum was placed in the vagina. At this point, it was difficult to see the cervix. There were multiple vaginal adhesions that were taken down bluntly and sharply using Metzenbaum scissors. There was a tiny pinhole that represented the cervical os. With the help of my program services assistant, with retraction of the vagina, this was dilated using the Hegar dilators up to 5 mm. The GoWarare uterine manipulator was inserted and sutured into place at the 2 and 10 o'clock positions on the vagina, near the cervical os. Once this was in place, gloves were then changed and attention was turned towards the abdomen. Approximately, 23 cm above the pubic symphysis, in the midline, after a 0.25% Sensorcaine injection, a 10-mm incision was made with the scalpel. Next, a 10 mm XL trocar was inserted into the pelvis under direct visualization using 5 mm laparoscope. The abdomen was insufflated with CO2 gas and the patient was placed in Trendelenburg position. At this point, survey of the pelvis was performed, no adhesions were found in the abdomen. The uterus appeared to be freely mobile and appeared normal. Both ovaries, tubes looked normal. At 12 cm lateral to the midline on the left and right side, 8 mm robotic accessory trocars were placed under direct visualization. A left upper quadrant program services assistant port site was placed, this was an 8 mm AirSeal trocar. The AirSeal was then activated and the robot was then docked. At this point, the hysterectomy was initiated first by cauterizing and cutting the infundibulopelvic ligament on both sides with excellent hemostasis noted. The round ligaments were cauterized and cut on both sides. Excellent hemostasis was noted. The broad ligament was using the vessel sealer on both sides. On the right side, there was easy access down to the cervix. The uterine vessels were cauterized on the right side, starting at the ascending branch, dissecting along the edges of the cervix to the level of the cervicovaginal junction. On the left side; however, there was a large pelvic mass that appeared to be retroperitoneal. The hysterectomy was continued by staying medial the mass on the left side. The uterine vessels were isolated, cut and cauterized starting from the ascending branch, dissecting along the edges of the cervix to level the cervicovaginal junction. The bladder flap was taken down further away from the VCare device using the hot tristan to the level of the VCare cup. At this point, the cervix was circumferentially incised with bipolar cautery using the VCare as a guide. The uterus, cervix, tubes and ovaries were then removed from the abdomen through the vagina. Attention was turned towards the mass, after the uterus was removed, the mass presented itself further into the pelvis. Fine adhesions were taken down off of the mass and the mass was grasped gently and pulled medially. At this point, it was noted that it was mostly likely a broad ligament fibroid that was only attached to the uterus on this tiny stalk. The fibroid was grasped and the adhesions were taken down until the fibroid was completely unencapsulated and delivered away from the pelvic wall. This was then passed down to the vaginal incision intact and removed. Next, the vaginal cuff was closed using V-Loc stitch, this was performed in a running technique using 1 layer with excellent hemostasis noted. A cystoscopy was then performed with a 70-degree cystoscope through the urethra, approximately 250 mL of saline was inflated into the bladder. Intraoperative images were made and ureteral orifices and jet flows were seen coming from both ureters. No suture material or objects were found in the bladder. The bladder appeared to be intact without damage. The cystoscope was removed and the Amato catheter was replaced into the bladder. The robot was then un- docked. Viviane was applied to the vaginal cuff; however, there was no active bleeding appreciated at the cuff or at the tumor site. The 10 mm trocar was removed. Using a Luis-Kesha suture closure device, the fascia was closed using an 0 Vicryl stitch. The remaining laparoscopic port sites were removed under direct visualization. The gas was allowed to escape from the abdomen. The patient was placed back into a dorsal supine position and the incisions were closed using a 4-0 Monocryl. The patient tolerated the procedure well. Sponge, lap, needle counts were correct x2 and she is now recovering well in stable condition. Mariann Mota DO T: NTS JOB: [id number] 06/28/1511 <Electronically signed by Mariann Mota DO> Date Mariann Mota DO Cosigner Signature (If Indicated): Date CC: Nancy Shannon MD; Mariann Mota DO Date Dictated: 06/24/15957 Date Transcribed: 06/24/15957 Drug Inspector: Signed Indigo Whipple Start: 06-24-2015 Antibody screen Indigo Whipple Plan of Treatment Date Care Activity Detail Author Start: 03-19-2023 Procedure Education Eprescribed prescriptions (G8553) [facility]; [facility] Work Phone: Start: 03-19-2023 Provider Instructions for Treatment [facility]; [facility] Work Phone: Start: 03-19-2023 25 hydroxy includes fractions if performed CALCIFEDIOL (79676) [facility]; [facility] Work Phone: Start: 03-19-2023 Assay of parathormone PARATHORMONE (07070) [facility]; [facility] Work Phone: Start: 02-26-2023 Procedure Education Eprescribed prescriptions (G8553) [facility]; [facility] Work Phone: Start: 02-26-2023 Provider Instructions for Treatment [facility]; [facility] Work Phone: Start: 02-26-2023 25 hydroxy includes fractions if performed CALCIFEDIOL (41562) [facility]; [facility] Work Phone: Start: 02-26-2023 Assay of parathormone PARATHORMONE (45623) [facility]; [facility] Work Phone: Start: 02-26-2023 Assay of thyroid stimulating hormone tsh TSH (THYROID STIMULATING HORMONE) (79642) [facility]; [facility] Work Phone: Start: 02-26-2023 Urine albumin quantitative MICROALBUMIN: CREATININE RATIO (86774) AND (62030) [facility]; [facility] Work Phone: Start: 02-26-2023 Comprehensive metabolic panel METABOLIC PANEL, COMPREHENSIVE (25300) [facility]; [facility] Work Phone: Start: 02-26-2023 Blood count complete auto&auto difrntl wbc CBC with auto diff (73364) [facility]; [facility] Work Phone: Start: 02-26-2023 Lipid panel LIPID PANEL (70900) [facility]; [facility] Work Phone: Start: 02-26-2023 Hemoglobin glycosylated a1c HGB A1C (45891) [facility]; [facility] Work Phone: Start: 03-16-2022 Procedure Education Eprescribed prescriptions (G8553) [facility]; [facility] Work Phone: Start: 03-16-2022 Provider Instructions for Treatment [facility]; [facility] Work Phone: Start: 02-23-2022 Procedure Education Eprescribed prescriptions (G8553) [facility]; [facility] Work Phone: Start: 02-23-2022 Provider Instructions for Treatment [facility]; [facility] Work Phone: Start: 02-23-2022 Assay of phosphatase alkaline ALKALINE PHOSPHATASE (15863) [facility]; [facility] Work Phone: Start: 01-23-2022 Procedure Education Eprescribed prescriptions (G8553) [facility]; [facility] Work Phone: Start: 01-23-2022 Provider Instructions for Treatment [facility]; [facility] Work Phone: Start: 11-19-2019 Comprehensive metabolic panel METABOLIC PANEL, COMPREHENSIVE (35543) [facility]; [facility] Work Phone: Start: 11-19-2019 Blood count complete auto&auto difrntl wbc CBC W/AUTO DIFF WBC (10219) [facility]; [facility] Work Phone: Start: 11-19-2019 Microsomal antibodies each Anti TPO Antibody (69627) [facility]; [facility] Work Phone: Start: 11-19-2019 Assay of thyroid stimulating hormone tsh TSH (94908) [facility]; [facility] Work Phone: Start: 11-19-2019 TSH Qn TSH (02765) [facility]; [facility] Work Phone: Start: 11-19-2019 Assay of free thyroxine T4, FREE (THYROXINE) (26793) [facility]; [facility] Work Phone: Start: 11-19-2019 Free T4 [Mass/Vol] T4, FREE (THYROXINE) (69164) [facility]; [facility] Work Phone: Start: 11-19-2019 Assay of triiodothyronine t3 free T3, FREE (TRIDOTHYRONINE) (76208) [facility]; [facility] Work Phone: Start: 11-19-2019 Free T3 [Mass/Vol] T3, FREE (TRIDOTHYRONINE) (69568) [facility]; [facility] Work Phone: Start: 11-19-2019 Lipoprotein blood jackie numbers & subclasses NMR Profile (08418) [facility]; [facility] Work Phone: Start: 11-19-2019 Procedure Education Eprescribed prescriptions (G8553) [facility]; [facility] Work Phone: Start: 11-19-2019 Provider Instructions for Treatment [facility]; [facility] Work Phone: Start: 11-20-2018 Procedure Education Eprescribed prescriptions (G8553) [facility] Work Phone: Start: 11-20-2018 Provider Instructions for Treatment [facility] Work Phone: Start: 11-20-2018 Protein mass conc LIPOPROTEIN, BLD, BY NMR (23782) [facility] Work Phone: Start: 11-20-2018 Thyrotropin Qn TSH (00564) [facility] Work Phone: Start: 11-20-2018 T4 free mass conc T4, FREE (THYROXINE) (88970) [facility] Work Phone: Start: 11-20-2018 T3 free mass conc T3, FREE (TRIDOTHYRONINE) (43890) [facility] Work Phone: Start: 03-06-2018 Procedure Education Eprescribed prescriptions (G8553) [facility] Work Phone: Start: 03-06-2018 Provider Instructions for Treatment [facility] Work Phone: Start: 12-06-2016 Procedure Education Eprescribed prescriptions (G8553) [facility] Work Phone: Start: 12-06-2016 Provider Instructions for Treatment [facility] Work Phone: Start: 11-15-2015 Hepatic function panel HEPATIC FUNCTION PANEL (59193) [facility] Work Phone: Start: 11-15-2015 Lipid panel LIPID PANEL (26431) [facility] Work Phone: Start: 11-15-2015 Provider Instructions for Treatment Follow up in 1 year or as needed [facility] Work Phone: Start: 10-22-2013 Patient Education Hypothyroidism: thyroid [facility] Work Phone: Start: 10-22-2013 Provider Instructions for Treatment Follow up in 1 year [facility] Work Phone: Start: 10-21-2012 Assay of thyroid stimulating hormone tsh TSH (82421) [facility]; [facility] Work Phone: Start: 10-21-2012 Thyrotropin Qn TSH (79288) [facility] Work Phone: Start: 10-21-2012 Patient Education Hypothyroidism: Brief Version *: thyroid [facility] Work Phone: Start: 10-21-2012 Provider Instructions for Treatment [facility] Work Phone: Start: 04-17-2012 Assay of thyroid stimulating hormone tsh TSH (36520) [facility]; [facility] Work Phone: Start: 04-17-2012 Thyrotropin Qn TSH (32882) [facility] Work Phone: Start: 12-19-2011 Assay of thyroid stimulating hormone tsh TSH (02762) [facility]; [facility] Work Phone: Start: 12-19-2011 Thyrotropin Qn TSH (95226) [facility] Work Phone: Start: 10-18-2011 Provider Instructions for Treatment [facility] Work Phone: Start: 04-25-2011 Provider Instructions for Treatment *Abd Pain Red Flags [facility] Work Phone: Start: 09-07-2010 Provider Instructions for Treatment [facility] Work Phone: Start: 03-02-2010 Provider Instructions for Treatment [facility] Work Phone: Start: 03-02-2010 Lipid panel LIPID PANEL (38735) [facility] Work Phone: Start: 01-21-2010 Provider Instructions for Treatment Diet, Exercise, and Wt loss [facility] Work Phone: Start: 09-22-2009 Provider Instructions for Treatment Diet, Exercise, and Wt loss [facility] Work Phone: Start: 01-01-2009 Provider Instructions for Treatment Punch Biopsy with Epi [facility] Work Phone: Start: 12-25-2008 Provider Instructions for Treatment UTI treatment [facility] Work Phone: Start: 12-23-2008 Provider Instructions for Treatment [facility] Work Phone: Start: 04-08-2008 Glucose mass conc Glucose, PP/2 Hour (18347) [facility] Work Phone: Start: 04-08-2008 Glucose quantitative blood xcpt reagent strip Glucose, PP/2 Hour (99655) [facility]; [facility] Work Phone: Start: 11-01-2007 Cytp smrs any oth src extnd std > 5 slides CYTOPATHOLOGY, EXTENSIVE STUDY (35793) [facility] Work Phone: Immunizations Immunization Date Immunization Notes Care Provider Fa cility 02-17-2021 COVID-Moderna (100 MCG/0.5 ML) Indigo Whipple DO Work Phone: [facility]; [facility] Work Phone: 01-20-2021 COVID-Moderna (100 MCG/0.5 ML) Indigo Greeneon DO Work Phone: [facility]; [facility] Work Phone: Payers Date Payer Category Payer Unknown [id number] 2009 Private Health Insurance [id number] 1955 Unknown [id number] Unknown Unknown [id number] Social History Date Type Detail Facility Caffeine Use Never smoker [facility] Work Phone: Functional Status Date Assessment Result Facility 11-20-2018 LP-IR Score LP-IR Score 79 [facility] Work Phone: Instructions Note Date & Type Note Facility [facility]; [facility] Work Phone: Instructions Note Date & Type Note Facility [facility]; [facility] Work Phone: Instructions Note Date & Type Note Facility [facility]; [facility] Work Phone: Instructions Note Date & Type Note Facility [facility]; [facility] Work Phone: Instructions Note Date & Type Note Facility [facility]; [facility] Work Phone: Instructions Note Date & Type Note Facility [facility]; [facility] Work Phone: Family History Unknown Family Member Name Dates Details First Degree Relatives Comments:DM, drug abuse, Hea rt disease, high cholesterol Status:Active Mother Comments:Stroke, bowel [place] Status:Active Unknown Family Member Name Dates Details First Degree Relatives Comments:DM, drug abuse, Hea rt disease, high cholesterol Status:Active Mother Comments:Stroke, bowel [place] Status:Active Unknown Family Member Name Dates Details First Degree Relatives Comments:DM, drug abuse, Hea rt disease, high cholesterol Status:Active Mother Comments:Stroke, bowel [place] Status:Active Unknown Family Member Name Dates Details First Degree Relatives Comments:DM, drug abuse, Hea rt disease, high cholesterol Status:Active Mother Comments:Stroke, bowel [place] Status:Active Unknown Family Member Name Dates Details First Degree Relatives Comments:DM, drug abuse, Hea rt disease, high cholesterol Status:Active Mother Comments:Stroke, bowel [place] Status:Active Unknown Family Member Name Dates Details First Degree Relatives Comments:DM, drug abuse, Hea rt disease, high cholesterol Status:Active Mother Comments:Stroke, bowel [place] Status:Active Unknown Family Member Name Dates Details First Degree Relatives Comments:DM, drug abuse, Hea rt disease, high cholesterol Status:Active Mother Comments:Stroke, bowel [place] Status:Active Unknown Family Member Name Dates Details First Degree Relatives Comments:DM, drug abuse, Hea rt disease, high cholesterol Status:Active Mother Comments:Stroke, bowel [place] Status:Active Unknown Family Member Name Dates Details First Degree Relatives Comments:DM, drug abuse, Hea rt disease, high cholesterol Status:Active Mother Comments:Stroke, bowel [place] Status:Active Unknown Family Member Name Dates Details First Degree Relatives Comments:DM, drug abuse, Hea rt disease, high cholesterol Status:Active Mother Comments:Stroke, bowel [place] Status:Active Instructions Name Dates Details Nonsmoker : How to access he alth information online Indication:Nonsmoker Nonsmoker : How to access he alth information online - Detail Indication:Nonsmoker Nonsmoker : Patient Instruct ions Indication:Nonsmoker Arthritis : How to access he alth information online Indication:Arthritis Arthritis : How to access he alth information online - Detail Indication:Arthritis Arthritis : Patient Instruct ions Indication:Arthritis Allergic rhinitis : How to a ccess health information online Indication:Allergic rhinitis Allergic rhinitis : How to a ccess health information online - Detail Indication:Allergic rhinitis Allergic rhinitis : Patient Instructions Indication:Allergic rhinitis Hypothyroidism : Patient Ins tructions Indication:Hypothyroidism Name Dates Details How to access health informa tion online Indication:BMI 37.0-37.9, adult Start:26-Jan-2020 Instruction Type:Patient Education Patient Instructions Indication:BMI 37.0-37.9, adult Start:26-Jan-2020 Instruction Type:Provider Instructions for Treatment How to access health informa tion online Indication:Nonsmoker Start:19-Nov-2019 Instruction Type:Patient Education How to access health informa tion online - Detail Indication:Nonsmoker Start:19-Nov-2019 Instruction Type:Patient Education Patient Instructions Indication:Nonsmoker Start:19-Nov-2019 Instruction Type:Provider Instructions for Treatment How to access health informa tion online Indication:Nonsmoker Start:20-Nov-2018 Instruction Type:Patient Education How to access health informa tion online - Detail Indication:Nonsmoker Start:20-Nov-2018 Instruction Type:Patient Education Patient Instructions Indication:Nonsmoker Start:20-Nov-2018 Instruction Type:Provider Instructions for Treatment How to access health informa tion online Indication:Arthritis Start:06-Mar-2018 Instruction Type:Patient Education How to access health informa tion online - Detail Indication:Arthritis Start:06-Mar-2018 Instruction Type:Patient Education Patient Instructions Indication:Arthritis Start:06-Mar-2018 Instruction Type:Provider Instructions for Treatment How to access health informa tion online Indication:Nonsmoker Start:06-Dec-2016 Instruction Type:Patient Education How to access health informa tion online - Detail Indication:Nonsmoker Start:06-Dec-2016 Instruction Type:Patient Education Patient Instructions Indication:Nonsmoker Start:06-Dec-2016 Instruction Type:Provider Instructions for Treatment How to access health informa tion online Indication:Allergic rhinitis Start:15-Nov-2015 Instruction Type:Patient Education How to access health informa tion online - Detail Indication:Allergic rhinitis Start:15-Nov-2015 Instruction Type:Patient Education Patient Instructions Indication:Allergic rhinitis Start:15-Nov-2015 Instruction Type:Provider Instructions for Treatment Patient Instructions Indication:Hypothyroidism Start:22-Oct-2013 Instruction Type:Provider Instructions for Treatment Patient Instructions Indication:Hypothyroidism Start:21-Oct-2012 Instruction Type:Provider Instructions for Treatment Name Dates Details How to access health informa tion online Indication:Nonsmoker Start:20-Nov-2018 Instruction Type:Patient Education How to access health informa tion online - Detail Indication:Nonsmoker Start:20-Nov-2018 Instruction Type:Patient Education Patient Instructions Indication:Nonsmoker Start:20-Nov-2018 Instruction Type:Provider Instructions for Treatment How to access health informa tion online Indication:Arthritis Start:06-Mar-2018 Instruction Type:Patient Education How to access health informa tion online - Detail Indication:Arthritis Start:06-Mar-2018 Instruction Type:Patient Education Patient Instructions Indication:Arthritis Start:06-Mar-2018 Instruction Type:Provider Instructions for Treatment How to access health informa tion online Indication:Nonsmoker Start:06-Dec-2016 Instruction Type:Patient Education How to access health informa tion online - Detail Indication:Nonsmoker Start:06-Dec-2016 Instruction Type:Patient Education Patient Instructions Indication:Nonsmoker Start:06-Dec-2016 Instruction Type:Provider Instructions for Treatment How to access health informa tion online Indication:Allergic rhinitis Start:15-Nov-2015 Instruction Type:Patient Education How to access health informa tion online - Detail Indication:Allergic rhinitis Start:15-Nov-2015 Instruction Type:Patient Education Patient Instructions Indication:Allergic rhinitis Start:15-Nov-2015 Instruction Type:Provider Instructions for Treatment Patient Instructions Indication:Hypothyroidism Start:22-Oct-2013 Instruction Type:Provider Instructions for Treatment Patient Instructions Indication:Hypothyroidism Start:21-Oct-2012 Instruction Type:Provider Instructions for Treatment Name Dates Details How to access health informa tion online Indication:BMI 37.0-37.9, adult Start:26-Jan-2020 Instruction Type:Patient Education Patient Instructions Indication:BMI 37.0-37.9, adult Start:26-Jan-2020 Instruction Type:Provider Instructions for Treatment How to access health informa tion online Indication:Nonsmoker Start:19-Nov-2019 Instruction Type:Patient Education How to access health informa tion online - Detail Indication:Nonsmoker Start:19-Nov-2019 Instruction Type:Patient Education Patient Instructions Indication:Nonsmoker Start:19-Nov-2019 Instruction Type:Provider Instructions for Treatment How to access health informa tion online Indication:Nonsmoker Start:20-Nov-2018 Instruction Type:Patient Education How to access health informa tion online - Detail Indication:Nonsmoker Start:20-Nov-2018 Instruction Type:Patient Education Patient Instructions Indication:Nonsmoker Start:20-Nov-2018 Instruction Type:Provider Instructions for Treatment How to access health informa tion online Indication:Arthritis Start:06-Mar-2018 Instruction Type:Patient Education How to access health informa tion online - Detail Indication:Arthritis Start:06-Mar-2018 Instruction Type:Patient Education Patient Instructions Indication:Arthritis Start:06-Mar-2018 Instruction Type:Provider Instructions for Treatment How to access health informa tion online Indication:Nonsmoker Start:06-Dec-2016 Instruction Type:Patient Education How to access health informa tion online - Detail Indication:Nonsmoker Start:06-Dec-2016 Instruction Type:Patient Education Patient Instructions Indication:Nonsmoker Start:06-Dec-2016 Instruction Type:Provider Instructions for Treatment How to access health informa tion online Indication:Allergic rhinitis Start:15-Nov-2015 Instruction Type:Patient Education How to access health informa tion online - Detail Indication:Allergic rhinitis Start:15-Nov-2015 Instruction Type:Patient Education Patient Instructions Indication:Allergic rhinitis Start:15-Nov-2015 Instruction Type:Provider Instructions for Treatment Patient Instructions Indication:Hypothyroidism Start:22-Oct-2013 Instruction Type:Provider Instructions for Treatment Patient Instructions Indication:Hypothyroidism Start:21-Oct-2012 Instruction Type:Provider Instructions for Treatment Summary Purpose Advance Directives Name Dates Details Immunization Registry [place] - Effective on 01/25/2021. Expiration date unspecified Effective:25-Jan-2021 Name Dates Details Immunization Registry [place] - Effective on 01/25/2021. Expiration date unspecified Effective:25-Jan-2021 Name Dates Details Immunization Registry [place] - Effective on 01/25/2021. Expiration date unspecified Effective:25-Jan-2021 Name Dates Details Immunization Registry [place] - Effective on 01/25/2021. Expiration date unspecified Effective:25-Jan-2021 Name Dates Details Immunization Registry [place] - Effective on 01/25/2021. Expiration date unspecified Effective:25-Jan-2021 Name Dates Details Immunization Registry [place] - Effective on 01/25/2021. Expiration date unspecified Effective:25-Jan-2021 Additional Source Comments INFORMATION SOURCE (unrecogn ized section and content) DATE CREATED AUTHOR AUTHOR'S SP MAL[facility] P[facility] TO PATIENTS WHO ARE OR HAVE BEEN ENROLLED IN A CHEMICAL DEPENDENCY/SUBSTANCEABUSE PROGRAM, SOME INFORMATION MAY BE OMITTED. This clinical summary was aggregated from multiple sources. Caution should be exercised in using it in the provision of clinical care. This summary normalizes information from multiple sources, and as a consequence, information in this document may materially change the coding, format and clinical context of patient data. In addition, data may be omitted in some cases. CLINICAL DECISIONS SHOULD BE BASED ON THE PRIMARY CLINICAL RECORDS. [employer] provides no warranty or guarantee of the accuracy or completeness of information in this document.
[2023-11-15 15:33] LABS: Absolute Lymphocyte Count 2.13 X10^3/uL (0.83-4.51); Absolute Neutrophil Count 3.8 X10^3/uL (2.0-7.7); Basophil# 0.04 X10^3/uL; Basophil% 0.6 % (0-1); Eosinophil# 0.15 X10^3/uL; Eosinophils% 2.3 % (0-5); Hematocrit 43.9 % (37-47); Hemoglobin 13.9 g/dL (12.0-15.0); Lymphocyte # 2.13 X10^3/ul (0.83-4.51); Lymphocyte % 32.6 % (19-41); Mean Corp Hgb Conc 31.7 g/dL (32-36); Mean Corpuscular Hgb 30.9 pg (27.0-32.0); Mean Corpuscular Volume 97.6 fL (81-99); Mean Platelet Vol. 10.1 fl (6.2-12.0); Monocyte# 0.43 X10^3/uL; Monocyte% 6.6 % (0-10); NRBC Flagged by Analyzer 0 % (0-5); Neutrophil # 3.76 X10^3/uL (2.7-7.7); Neutrophil % 57.6 % (47-70); Platelet Count 355 K/mm3 (150-450); RBC Distribution Width CV 13.9 % (11.6-14.6); RBC Distribution Width SD 49.2 fl (35.1-43.9); White Blood Count 6.5 K/mm3 (4.4-11.0)
[2023-11-15 16:13] LABS: ALB/GLOB Ratio 0.9 RATIO (0.9-2.4); AST(SGOT) 27 U/L (15-37); Alanine Aminotransfer ALT/SGPT 29 U/L (13-56); Albumin, Serum 3.7 g/dL (3.2-5.0); Alkaline Phosphatase 83 U/L (45-117); Anion Gap 8 (5-15); BUN 17 mg/dL (7-18); BUN/Creat Ratio 14.4 RATIO (10-20); Chloride 105 mmol/L (98-107); Creatinine, Serum 1.18 mg/dL (0.55-1.02); EST Glomerular Filtration Rate 49 mL/min (>60); Est Glom Filt Rate - Afr Amer 59 mL/min (>60); Globulin 3.9 g/dL (2.2-4.2); Glucose 99 mg/dL (74-106); Protein, Total 7.6 g/dL (6.4-8.2); Sodium Level 140 mmol/L (136-145)
== END | disposition home or self-care (01) ==
PROVIDERS: PCP Internal Medicine; Referring Provider Internal Medicine Rheumatology; Visit Provider Internal Medicine Rheumatology
DX: M06.09 Rheumatoid arthritis without rheumatoid factor, multiple sites (principal); M15.9 Polyosteoarthritis, unspecified; Z79.899 Other long term (current) drug therapy
CPT/HCPCS: 36415; 80053; 85025

== ENCOUNTER → 2024-04-02 | Outpatient (CLI) | payer MEDICARE, SELFPAY ==
--- NOTE | 2024-04-02 12:40 | VDLE_ITS ---
Reason For Study: BLE Pain RIGHT LEFT GSV is normal. GSV is normal. CFV is compressible, spontaneous, phasic, CFV is compressible, spontaneous, phasic, competent and demonstrates normal competent, and demonstrates normal augmentation. augmentation. FV is compressible, spontaneous, phasic, FV is compressible, spontaneous, phasic, competent and demonstrates normal competent and demonstrates normal augmentation. augmentation. POP V is compressible, spontaneous, phasic, POP V is compressible, spontaneous, phasic, competent and demonstrates normal competent and demonstrates normal augmentation. augmentation. T/P Trunk is compressible. T/P Trunk is compressible. PTV is compressible. PTV is compressible. RT PerV is compressible. LT PerV is compressible. Thrombus filled ASV / VV noted from anterior distal thigh to mid calf. Procedure This is a venous duplex using B-mode, color flow and spectral Doppler. Exam performed in department. The exam was diagnostic. A preliminary report was called and/or faxed to Marcelle Chamberlain RN at [facility]. VL/Venous Duplex US - Young Extrem Interpretation Summary No evidence for acute deep venous thrombosis bilateral lower extremities Patent and compressible bilateral great saphenous vein Superficial thrombophlebitis right accessory saphenous vein and varicose veins from the anterior distal thigh to the mid calf. Ordering Physician: Talisha Mina Referring Physician: Indigo Whipple M.D. Performed By: Yrn Taylor RVT
== END | disposition home or self-care (01) ==
LOC: CVS 12:23
PROVIDERS: PCP Internal Medicine; Referring Provider Nurse Practitioner Family; Visit Provider Nurse Practitioner Family
DX: M79.604 Pain in right leg (principal)
CPT/HCPCS: 93970

== ENCOUNTER → 2024-05-09 | Outpatient (CLI) | payer MEDICARE, SELFPAY ==
[2024-05-09 10:07] LABS: Absolute Lymphocyte Count 2.05 X10^3/uL (0.83-4.51); Absolute Neutrophil Count 3.8 X10^3/uL (2.0-7.7); Basophil# 0.04 X10^3/uL; Basophil% 0.6 % (0-1); Eosinophil# 0.15 X10^3/uL; Eosinophils% 2.3 % (0-5); Hematocrit 40.4 % (37-47); Hemoglobin 12.7 g/dL (12.0-15.0); Lymphocyte # 2.05 X10^3/ul (0.83-4.51); Lymphocyte % 30.9 % (19-41); Mean Corp Hgb Conc 31.4 g/dL (32-36); Mean Corpuscular Hgb 30.5 pg (27.0-32.0); Mean Corpuscular Volume 97.1 fL (81-99); Mean Platelet Vol. 9.7 fl (6.2-12.0); Monocyte# 0.63 X10^3/uL; Monocyte% 9.5 % (0-10); NRBC Flagged by Analyzer 0 % (0-5); Neutrophil # 3.75 X10^3/uL (2.7-7.7); Neutrophil % 56.4 % (47-70); Platelet Count 348 K/mm3 (150-450); RBC Distribution Width CV 14.4 % (11.6-14.6); RBC Distribution Width SD 51.4 fl (35.1-43.9); Red Blood Count 4.16 M/mm3 (4.2-5.4); White Blood Count 6.6 K/mm3 (4.4-11.0)
[2024-05-09 11:02] LABS: AST(SGOT) 26 U/L (15-37); Alanine Aminotransfer ALT/SGPT 32 U/L (13-56); Albumin, Serum 3.5 g/dL (3.2-5.0); Alkaline Phosphatase 83 U/L (45-117); Anion Gap 8 (5-15); BUN 17 mg/dL (7-18); BUN/Creat Ratio 15.5 RATIO (10-20); Calcium,Total 9.2 mg/dL (8.5-10.1); Chloride 107 mmol/L (98-107); EST Glomerular Filtration Rate 53 mL/min (>60); Est Glom Filt Rate - Afr Amer 64 mL/min (>60); Globulin 3.6 g/dL (2.2-4.2); Glucose 96 mg/dL (74-106); Potassium 3.8 mmol/L (3.5-5.1); Protein, Total 7.1 g/dL (6.4-8.2); Sodium Level 140 mmol/L (136-145)
== END | disposition home or self-care (01) ==
LOC: MTLAB 08:47
PROVIDERS: PCP Internal Medicine; Referring Provider Internal Medicine Rheumatology; Visit Provider Internal Medicine Rheumatology
DX: M06.00 Rheumatoid arthritis without rheumatoid factor, unspecified site (principal); M15.9 Polyosteoarthritis, unspecified; Z79.899 Other long term (current) drug therapy
CPT/HCPCS: 36415; 80053; 85025

== ENCOUNTER → 2024-05-16 | Outpatient (CLI) | payer MEDICARE, SELFPAY | END | disposition home or self-care (01) | LOC: LABSPEC 15:16 | PROVIDERS: PCP Internal Medicine; Referring Provider Physician Assistant Surgical; Visit Provider Physician Assistant Surgical | DX: N39.0 Urinary tract infection, site not specified (principal) | CPT/HCPCS: 87077; 87086; 87088; 87186 ==

== ENCOUNTER → 2024-08-29 | Outpatient (CLI) | payer MEDICARE, SELFPAY ==
--- NOTE | 2024-08-29 14:33 | ECHOD_ITS ---
Reason For Study: Right BBB Procedure This was a 2D Doppler, Color Flow transthoracic echocardiogram. Exam performed in department. Left Ventricle Normal LV size. Left ventricular systolic function is normal. The left ventricular ejection fraction is 55 %. Stage 1 diastolic dysfunction. No regional wall motion abnormalities noted. Right Ventricle Normal RV size. Normal systolic function. Atria Normal left atrium. Normal right atrium. Mitral Valve Normal mitral valve. Tricuspid Valve Normal tricuspid valve. Aortic Valve Trisinus/trileaflet aortic valve. Pulmonic Valve Normal pulmonic valve. Great Vessels Normal aortic root. The pulmonary artery is normal size. Inferior vena cava collapse with respiration. Pericardium/Pleural No pericardial effusion. MMode/2D Measurements & Calculations LVIDd: 4.6 cm IVSd: 1.1 cm Ao root diam: 3.3 cm LVIDs: 3.5 cm LVPWd: 1.2 cm RVDd: 4.0 cm FS: 24.3 % LAV(MOD-bp): 43.3 ml LA A4 area: 17.2 cm2 LA dimension(2D): 3.0 cm LAV(MOD-bp) Indexed: 20.0 ml/m2 LAV(MOD-sp2): 40.4 ml LAV(MOD-sp4): 41.4 ml TAPSE: 1.6 cm RA A4 area: 14.3 cm2 Time Measurements MV dec time: 0.22 sec Doppler Measurements & Calculations MV E max carlos: 68.3 cm/sec Lat Peak E' Carlos: 13.2 cm/sec Med Peak E' Carlos: 8.2 cm/sec MV A max carlos: 94.8 cm/sec E/E' lat: 5.2 E/E' med: 8.3 MV E/A: 0.72 MV V2 max: 102.0 cm/sec MV P1/2t max carlos: 76.5 cm/sec Ao V2 max: 133.9 cm/sec MV max P.2 mmHg MV P1/2t: 79.6 msec Ao max P.2 mmHg MV V2 mean: 59.2 cm/sec MV dec slope: 281.4 cm/sec2 Ao V2 mean: 91.8 cm/sec MV mean P.6 mmHg Ao mean P.9 mmHg MV V2 VTI: 21.2 cm MVA(P1/2t): 2.8 cm2 Ao V2 VTI: 27.1 cm AV (velocity ratio): 0.86 LV V1 max: 111.5 cm/sec PA V2 max: 85.7 cm/sec LV V1 max P.0 mmHg LV V1 mean P.4 mmHg LV V1 mean: 71.5 cm/sec LV V1 VTI: 23.3 cm ECHO/Echo Complete Interpretation Summary Normal LV size. Left ventricular systolic function is normal. The left ventricular ejection fraction is 55 %. Stage 1 diastolic dysfunction. Structurally normal valves. Ordering Physician: Indigo Whipple Referring Physician: Indigo Whipple Performed By: Arley Antunez RCS
== END | disposition home or self-care (01) ==
LOC: CVS 14:30
PROVIDERS: PCP Internal Medicine; Referring Provider Internal Medicine; Visit Provider Internal Medicine
DX: R07.89 Other chest pain (principal)
CPT/HCPCS: 93306

== ENCOUNTER → 2024-09-23 | Outpatient (CLI) | payer MEDICARE, SELFPAY | END | disposition home or self-care (01) | LOC: US 13:02 | PROVIDERS: PCP Internal Medicine; Referring Provider Internal Medicine; Visit Provider Internal Medicine | DX: E04.1 Nontoxic single thyroid nodule (principal) | CPT/HCPCS: 76536 ==

== ENCOUNTER → 2024-10-08 | Outpatient (CLI) | payer MEDICARE, SELFPAY ==
[2024-10-08 10:39] LABS: Absolute Lymphocyte Count 1.94 X10^3/uL (0.83-4.51); Absolute Neutrophil Count 2.9 X10^3/uL (2.0-7.7); Basophil# 0.04 X10^3/uL; Basophil% 0.7 % (0-1); Eosinophil# 0.22 X10^3/uL; Eosinophils% 3.9 % (0-5); Hematocrit 39.2 % (37-47); Hemoglobin 12.8 g/dL (12.0-15.0); Lymphocyte # 1.94 X10^3/ul (0.83-4.51); Lymphocyte % 34.8 % (19-41); Mean Corp Hgb Conc 32.7 g/dL (32-36); Mean Corpuscular Hgb 31.5 pg (27.0-32.0); Mean Corpuscular Volume 96.6 fL (81-99); Mean Platelet Vol. 10.4 fl (6.2-12.0); Monocyte# 0.48 X10^3/uL; Monocyte% 8.6 % (0-10); NRBC Flagged by Analyzer 0 % (0-5); Neutrophil # 2.87 X10^3/uL (2.7-7.7); Neutrophil % 51.6 % (47-70); Platelet Count 301 K/mm3 (150-450); RBC Distribution Width CV 14.2 % (11.6-14.6); RBC Distribution Width SD 48.9 fl (35.1-43.9); Red Blood Count 4.06 M/mm3 (4.2-5.4); White Blood Count 5.6 K/mm3 (4.4-11.0)
[2024-10-08 11:10] LABS: AST(SGOT) 27 U/L (15-37); Alanine Aminotransfer ALT/SGPT 32 U/L (13-56); Albumin, Serum 3.5 g/dL (3.2-5.0); Alkaline Phosphatase 90 U/L (45-117); Anion Gap 6 (5-15); BUN 14 mg/dL (7-18); BUN/Creat Ratio 13.3 RATIO (10-20); Chloride 108 mmol/L (98-107); Creatinine, Serum 1.05 mg/dL (0.55-1.02); EST Glomerular Filtration Rate 55 mL/min (>60); Est Glom Filt Rate - Afr Amer 67 mL/min (>60); Globulin 3.4 g/dL (2.2-4.2); Glucose 96 mg/dL (74-106); Potassium 4.1 mmol/L (3.5-5.1); Protein, Total 6.9 g/dL (6.4-8.2); Sodium Level 142 mmol/L (136-145)
== END | disposition home or self-care (01) ==
LOC: MTLAB 09:02
PROVIDERS: PCP Internal Medicine; Referring Provider Internal Medicine Rheumatology; Visit Provider Internal Medicine Rheumatology
DX: M06.00 Rheumatoid arthritis without rheumatoid factor, unspecified site (principal); Z79.899 Other long term (current) drug therapy
CPT/HCPCS: 36415; 80053; 85025

== ENCOUNTER → 2024-12-04 | Outpatient (CLI) | payer MEDICARE, SELFPAY ==
--- NOTE | 2024-12-04 09:43 | BD_ITS ---
PROCEDURE: DEXA BONE DENSITY STUDY REASON FOR EXAM: F, age 69 y/o . Patient is postmenopausal.. TECHNIQUE: DEXA scan of the lumbar spine and both hips. COMPARISON: Comparison is made with prior study dated February 01, 2022. FINDINGS: Lumbar Spine (L1-L4): g/cm2 (1.203)/T-score (1.5)/Z-score (3.5) findings are suggestive of normal with a low fracture risk. Left Femur Total: g/cm2 (0.804)/T-score (-1.1)/Z-score (0.3) Left Femoral Neck: g/cm2 (0.473)/T-score (-3.4)/Z-score (-1.7) Right Femur Total: g/cm2 (0.850)/T-score (-0.8)/Z-score (0.6) Right Femoral Neck: g/cm2 (0.643)/T-score (-1.9)/Z-score (-0.2) The T-Scores on the most recent prior examination were: Lumbar Spine (L1-L4): There has been improvement of bone density since the previous examination. Left Femur Total: Improvement of 4.8%. Right Femur Total: Improvement of 5.9%. BD/Dexa Bone Density Study IMPRESSION: OSTEOPOROSIS. High fracture risk. Reading Location: [place] [id number]
--- NOTE | 2024-12-04 09:43 | BI_ITS ---
PROCEDURE: SCRN MAMM (CAD)W/AARON BILAT REASON FOR EXAM: F, Age 69 y/o, routine mammogram. Sister with breast cancer. Aunt with breast cancer. TECHNIQUE: Bilateral screening digital breast tomosynthesis with 2D and 3D images. Computer aided detection. COMPARISON: Prior exam(s) dating back to comparison is made with prior study dated March 13, 2023.. FINDINGS: There are scattered areas of fibroglandular density. Fat containing bilateral axillary lymph nodes. No suspicious masses, areas of developing architectural distortion, or suspicious calcifications. Stable examination. BI/SCRN MAMM (CAD)W/AARON BILAT IMPRESSION: BI-RADS 2: BENIGN. RECOMMEND ANNUAL MAMMOGRAPHIC SCREENING. Follow-up code: Routine Follow-up The patient will be notified of the results by letter. Reading Location: [place] [id number]
== END | disposition home or self-care (01) ==
LOC: OPBD 09:42
PROVIDERS: PCP Internal Medicine; Referring Provider Internal Medicine; Visit Provider Internal Medicine
DX: Z12.31 Encounter for screening mammogram for malignant neoplasm of breast (principal); Z78.0 Asymptomatic menopausal state
CPT/HCPCS: 77063; 77067; 77080

== ENCOUNTER → 2025-04-15 | Outpatient (CLI) | payer MEDICARE, SELFPAY ==
[2025-04-15 10:17] LABS: Absolute Lymphocyte Count 2.02 X10^3/uL (0.83-4.51); Absolute Neutrophil Count 3.4 X10^3/uL (2.0-7.7); Basophil# 0.03 X10^3/uL; Basophil% 0.5 % (0-1); Eosinophil# 0.19 X10^3/uL; Eosinophils% 3.1 % (0-5); Hematocrit 40.1 % (37-47); Hemoglobin 13.5 g/dL (12.0-15.0); Lymphocyte # 2.02 X10^3/ul (0.83-4.51); Lymphocyte % 33.4 % (19-41); Mean Corp Hgb Conc 33.7 g/dL (32-36); Mean Corpuscular Hgb 32.8 pg (27.0-32.0); Mean Corpuscular Volume 97.6 fL (81-99); Mean Platelet Vol. 10.4 fl (6.2-12.0); Monocyte# 0.43 X10^3/uL; Monocyte% 7.1 % (0-10); NRBC Flagged by Analyzer 0 % (0-5); Neutrophil # 3.36 X10^3/uL (2.7-7.7); Neutrophil % 55.6 % (47-70); Platelet Count 309 K/mm3 (150-450); RBC Distribution Width CV 14.1 % (11.6-14.6); RBC Distribution Width SD 49.3 fl (35.1-43.9); Red Blood Count 4.11 M/mm3 (4.2-5.4); White Blood Count 6.1 K/mm3 (4.4-11.0)
[2025-04-15 11:46] LABS: ALB/GLOB Ratio 1.4 RATIO (0.9-2.4); AST(SGOT) 32 U/L (<=31); Alanine Aminotransfer ALT/SGPT 27 U/L (<=34); Albumin, Serum 4.1 g/dL (3.4-4.8); Alkaline Phosphatase 91 U/L (35-104); Anion Gap 11 (5-15); BUN 15 mg/dL (4-19); BUN/Creat Ratio 13.2 RATIO (10-20); Calcium,Total 9.5 mg/dL (7.6-11.0); Carbon Dioxide 26.5 mmol/L (21.0-32.0); Chloride 102 mmol/L (98-108); Creatinine, Serum 1.11 mg/dL (0.70-1.20); EST Glomerular Filtration Rate 54 (>60); Glucose 95 mg/dL (70-99); Potassium 4.2 mmol/L (3.3-5.1); Protein, Total 7.1 g/dL (5.9-8.4); Sodium Level 140 mmol/L (133-145); Total Bilirubin 0.33 mg/dL (0.00-1.30)
== END | disposition home or self-care (01) ==
PROVIDERS: PCP Internal Medicine; Referring Provider Internal Medicine Rheumatology; Visit Provider Internal Medicine Rheumatology
DX: M06.00 Rheumatoid arthritis without rheumatoid factor, unspecified site (principal); M15.9 Polyosteoarthritis, unspecified; Z79.899 Other long term (current) drug therapy
CPT/HCPCS: 36415; 80053; 85025

== ENCOUNTER → 2025-09-25 | Outpatient (CLI) | payer MEDICARE, SELFPAY ==
--- NOTE | 2025-09-25 11:41 | US_ITS ---
PROCEDURE: THYROID 09/25/2025 REASON FOR EXAM: THYROID NODULE TECHNIQUE: Procedure Code: USTHY Modality: US Procedure: THYROID COMPARISON: 23 September 2024. FINDINGS: Transcutaneous 2-D grayscale and color Doppler ultrasound of the thyroid gland was performed. MEASUREMENTS: Right lobe: 4.4 x 1.5 x 1.5 cm. Left lobe: 3.3 x 1.3 x 1.1 cm. Isthmus: 2 mm. RIGHT SIDE: Homogeneous echotexture. The superior right thyroid contains a mixed cyst and solid, isoechoic, wider than tall, ill defined nodule measuring 0.5 x 0.4 x 0.4 cm without evidence of echogenic foci. (TR 3) The inferior right thyroid contains a mostly solid, hypoechoic, wider than tall, ill defined nodule measuring 1.1 x 1 x 0.7 cm without evidence of echogenic foci. (TR 4) LEFT SIDE: Homogeneous echotexture. No discrete lesion. ISTHMUS: No evidence of nodule or mass. Normal vascularity without microcalcification. No enlarged lymph nodes within the visualized neck. US/Thyroid IMPRESSION: Multinodular thyroid. TI-RADS 4, MODERATELY SUSPICIOUS. RECOMMENDATIONS: Recommend repeat ultrasound repeat ultrasound in one year (to finish 5 year yousif veillance) as these nodules do not currently meet size criteria for image guided fine needle aspiration. ACR TI-RADS Guidelines TI RADS 1 - Benign; No FNA TI RADS 2- Not Suspicious; No FNA TI RADS 3- Mildly Suspicious; FNA if >2.5cm or Follow if >1.5cm at 1, 3 and 5 y ears. TI RADS 4- Moderately Suspicious; FNA if >1.5cm or Follow if >1cm at 1, 2, 3 an d 5 years. TI RADS 5- Highly Suspicious; FNA if >1cm or Follow if >0.5cm yearly for up to 5 years. Reference: Demetrio FN, Socorro WD, Sancho EG et al. ACR Thyroid Imaging, Repor ting and Data System (TI-RADS): White Paper of the ACR TI-RADS Committee. Soni Am Reading Location: [id number]
== END | disposition home or self-care (01) ==
LOC: US 11:39
PROVIDERS: PCP Internal Medicine; Referring Provider Internal Medicine; Visit Provider Internal Medicine
DX: E04.1 Nontoxic single thyroid nodule (principal)
CPT/HCPCS: 76536

== ENCOUNTER → 2025-10-07 | Outpatient (CLI) | payer MEDICARE, SELFPAY ==
[2025-10-07 12:36] LABS: Hematocrit 37.4 % (37-47); Hemoglobin 13.8 g/dL (12.0-15.0); Immature Granulocytes Count 0.030 X10^3/uL (0.0-0.0); Mean Corp Hgb Conc 36.9 g/dL (32-36); Mean Corpuscular Volume 96.4 fL (81-99); Mean Platelet Vol. 10.2 fl (6.2-12.0); NRBC Flagged by Analyzer 0 % (0-5); Platelet Count 335 K/mm3 (150-450); RBC Distribution Width CV 14.2 % (11.6-14.6); RBC Distribution Width SD 47.8 fl (35.1-43.9); Red Blood Count 3.88 M/mm3 (4.2-5.4); White Blood Count 6.7 K/mm3 (4.4-11.0)
[2025-10-07 13:00] LABS: AST(SGOT) 32 U/L (<=31); Alanine Aminotransfer ALT/SGPT 21 U/L (<=34); Albumin, Serum 4.3 g/dL (3.4-4.8); Alkaline Phosphatase 92 U/L (35-104); Anion Gap 13 (5-15); BUN 16 mg/dL (4-19); BUN/Creat Ratio 12.7 RATIO (10-20); Calcium,Total 9.4 mg/dL (7.6-11.0); Carbon Dioxide 25.2 mmol/L (21.0-32.0); Chloride 103 mmol/L (98-108); Globulin 3.0 g/dL (2.2-4.2); Glucose 99 mg/dL (70-99); Potassium 4.4 mmol/L (3.3-5.1)
== END | disposition home or self-care (01) ==
LOC: MTLAB 09:57
PROVIDERS: PCP Internal Medicine; Referring Provider Internal Medicine Rheumatology; Visit Provider Internal Medicine Rheumatology
DX: M06.00 Rheumatoid arthritis without rheumatoid factor, unspecified site (principal); Z79.899 Other long term (current) drug therapy; M15.9 Polyosteoarthritis, unspecified
CPT/HCPCS: 36415; 80053; 85025